=== PATIENT | female | born 1965 | race African-American/Black ===

== ENCOUNTER 2016-12-24 11:17 | Emergency (ER) | payer BC ==
[~2016-12-24 11:17] MED LIST: ASPI81TA2 PO; CLIN300C86 PO; HYDR-971 PO; HYDR1POW19; LISI1TAB3 PO; LISI2.5T; MULT-208 PO
[2016-12-24 12:39] VITALS: BP 155/95
[2016-12-24] MEDS ORDERED: IBUPROFEN 600 MG TABLET. PO ONE (13:00)
--- NOTE | 2016-12-24 14:25 | RAD ---
Right shoulder, 3 views, 12/24/2016: History: Injury, pain No fracture or dislocation is identified. There is mild spurring at the acromioclavicular joint. The periarticular soft tissues are unremarkable. IMPRESSION: 1. Mild degenerative change at the AC joint. 2. No acute abnormality is detected.
--- NOTE | 2016-12-24 14:46 | RAD ---
Right elbow, 3 views, 12/24/2016: History: Elbow pain and tenderness No fracture or dislocation is identified. No joint effusion is evident. IMPRESSION: No acute right elbow abnormality is detected.
--- NOTE | 2016-12-24 14:54 | PHYS DOC ---
Past Medical History Past Medical History: Asthma, Hypertension Additional Past Medical Histor: eye disease Past Surgical History: Appendectomy Additional Past Surgical Histo: left knee surgery Alcohol Use: None Drug Use: None Adult General Chief Complaint Chief Complaint: UPPER EXTREMITY PAIN HPI HPI Patient is a 51 year old female presents emergency department stating that she has having right shoulder right elbow pain and discomfort. She states that they can fell off the shelf and hit her of the shoulder. She also states that she has been having pain in the elbow area in which has caused her to have some swelling and discomfort down into her hand. She denies any injury or trauma to the elbow area. Patient has full range of motion of the elbow peripheral pulses 2+ cap refill brisk less than 2 seconds. 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 Patient is right-hand dominant. Review of Systems Review of Systems Constitutional: Denies fever or chills [] Eyes: Denies change in visual acuity, redness, or eye pain [] HENT: Denies nasal congestion or sore throat [] Respiratory: Denies cough or shortness of breath [] Cardiovascular: No additional information not addressed in HPI [] GI: Denies abdominal pain, nausea, vomiting, bloody stools or diarrhea [] : Denies dysuria or hematuria [] Musculoskeletal: Denies back pain. Right shoulder and elbow pain Integument: Denies rash or skin lesions [] Neurologic: Denies headache, focal weakness or sensory changes [] Endocrine: Denies polyuria or polydipsia [] Current Medications Current Medications Current Medications Medications (Trade) Dose Ordered Sig/Erika Start Time Stop Time Status Last Admin Dose Admin Ibuprofen (Motrin) 600 mg 1X ONCE 12/24/16 13:00 12/24/16 13:01 DC 12/24/16 13:00 600 MG Allergies Allergies Allergies Coded Allergies Type Severity Reaction Last Updated Verified No Known Medication Allergies Allergy Unknown 03/16/16 Yes Uncoded Allergies Type Severity Reaction Last Updated Verified BOLOGNA Allergy Unknown BROKE OUT WITH HIVES, COUGHING 03/13/16 Physical Exam Physical Exam Constitutional: Well developed, well nourished, no acute distress, non-toxic appearance. [] HENT: Normocephalic, atraumatic, bilateral external ears normal, oropharynx moist, no oral exudates, nose normal. [] Eyes: PERRLA, EOMI, conjunctiva normal, no discharge. [] Neck: Normal range of motion, no tenderness, supple, no stridor. [] Cardiovascular:Heart rate regular rhythm, no murmur [] Lungs & Thorax: Bilateral breath sounds clear to auscultation [] Skin: Warm, dry, no erythema, no rash. [] Back: No tenderness Extremities: Right shoulder and elbow tenderness, no cyanosis, no clubbing, ROM intact, no edema. Patient with full range of motion of the elbow and the shoulder area. No bruising or discoloration noted. Patient does have slight swelling noted at the elbow area and low. Peripheral pulses are 2+ cap refill brisk less than 2 seconds. Patient with good sensation. 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 Neurologic: Alert and oriented X 3, normal motor function, normal sensory function, no focal deficits noted. [] Psychologic: Affect normal, judgement normal, mood normal. [] Current Patient Data Vital Signs Vital Signs Date Time Temp Pulse Resp B/P (MAP) Pulse Ox O2 Delivery O2 Flow Rate FiO2 12/24/16 12:39 98.1 60 18 97 Room Air 98.1 EKG EKG [] Radiology/Procedures Radiology/Procedures [][address] [id number] IMAGING REPORT Signed PATIENT: DANNIELLE SMITH ACCOUNT: [id number] : 1965 LOCATION: ER AGE: 51 SEX: F EXAM STATUS: REG ER ORD. PHYSICIAN: KAREEN COLEY APRN REASON: pain and discomfort in shoulder no injury PROCEDURE: SHOULDER 2+V RIGHT Right shoulder, 3 views, 12/24/2016: History: Injury, pain No fracture or dislocation is identified. There is mild spurring at the acromioclavicular joint. The periarticular soft tissues are unremarkable. IMPRESSION: 1. Mild degenerative change at the AC joint. 2. No acute abnormality is detected. DICTATED and SIGNED BY: DEREK LEUNG MD DATE: 12/24/16 1422 CC: KAREEN COLEY APRN; SKYLAR BRAY MD; NON,STAFF ~ [facility] [address] [place] [address] IMAGING REPORT Signed PATIENT: DANNIELLE SMITH ACCOUNT: [id number] : 1965 LOCATION: ER AGE: 51 SEX: F EXAM STATUS: REG ER ORD. PHYSICIAN: KAREEN COLEY APRN REASON: pain and tenderness with movement. no injury PROCEDURE: ELBOW RIGHT 3V Right elbow, 3 views, 12/24/2016: History: Elbow pain and tenderness No fracture or dislocation is identified. No joint effusion is evident. IMPRESSION: No acute right elbow abnormality is detected. DICTATED and SIGNED BY: DEREK LEUNG MD DATE: 12/24/16 1443 CC: KAREEN COLEY APRN; SKYLAR BRAY MD; NON,STAFF ~ Course & Med Decision Making Course & Med Decision Making Pertinent Labs and Imaging studies reviewed. (See chart for details) X-rays were negative. We'll encourage patient to do active range of motion. Recommended ibuprofen 600 mg every 8 hours with food stop taking few develop any upset stomachs. She'll be provided with orthopedic name and number to follow up with as she continues to have pain and discomfort. Patient will be discharged home in stable condition since symptoms to return back to emergency department as been provided. [] Dragon Disclaimer Dragon Disclaimer This electronic medical record was generated, in whole or in part, using a voice recognition dictation system. Departure Departure Impression: Primary Impression: Right shoulder pain Additional Impression: Bursitis of right elbow Disposition: HOME, SELF-CARE Condition: STABLE Referrals: SKYLAR BRAY MD (PCP) LEONEL GRAMAJO II, MD Patient Instructions: Bursitis, [id number], Shoulder Pain, [id number] Additional Instructions: Activity as tolerated. Ibuprofen 600 mg every 8 hours. Ice packs on 20 minutes off 20 minutes several times a day. No heavy lifting or repetitive motion for the next 5 days. Follow-up with orthopedic in the next 7-10 days if he continued have pain and discomfort. Return back to emergency prior signs symptoms of become worse. Problem Qualifiers KAREEN COLEY APRN December 24, 2016 14:54
== END 2016-12-24 15:00 | disposition home or self-care (01) ==
LOC: ER 11:17
DX: M70.21 Olecranon bursitis, right elbow (principal); M25.511 Pain in right shoulder; J45.909 Unspecified asthma, uncomplicated; I10 Essential (primary) hypertension; Z90.49 Acquired absence of other specified parts of digestive tract; Z98.890 Other specified postprocedural states; Z91.018 Allergy to other foods
CPT/HCPCS: 73030; 73080; 99284

== ENCOUNTER 2018-09-11 07:47 | Emergency (ER) | payer SELFPAY ==
[~2018-09-11] VITALS: Ht 167.6 cm; Wt 81.6 kg
[~2018-09-11 07:47] MED LIST changes: +ALBU2.5V8 INH; +ASPI-630 PO; -ASPI81TA2 PO; +AZIT250T PO; +BENZ100C PO; +CLIN300C8 PO; -CLIN300C86 PO; +HYDR-3164 PO; -HYDR-971 PO; +PRED50TA PO
[2018-09-11 08:11] LABS: BASO % 0 % (0-3); EOS # 0.1 x10^3/uL (0.0-0.7); EOS % 2 % (0-3); HEMATOCRIT 41.7 % (36.0-47.0); HEMOGLOBIN 13.3 g/dL (12.0-15.5); LYMPH # 1.5 x10^3/uL (1.0-4.8); LYMPH % 20 % (24-48); MEAN CORPUSCULAR HEMOGLOBIN 28 pg (25-35); MEAN CORPUSCULAR HGB CONC 32 g/dL (31-37); MEAN CORPUSCULAR VOLUME 89 fL (79-100); MONO # 0.4 x10^3/uL (0.0-1.1); MONO % 6 % (0-9); NEUT # 5.7 x10^3uL (1.8-7.7); NEUT % 73 % (31-73); PLATELET COUNT 226 x10^3/uL (140-400); RED BLOOD COUNT 4.72 x10^6/uL (3.50-5.40); RED CELL DISTRIBUTION WIDTH 14.3 % (11.5-14.5); WHITE BLOOD COUNT 7.9 x10^3/uL (4.0-11.0)
[2018-09-11] MEDS ORDERED: ONDANSETRON PF 4 MG/2 ML VIAL. IV ONE (08:15)
[2018-09-11] MEDS ORDERED: METOCLOPRAMIDE HCL 10 MG/2 ML VIAL. IV ONE (08:15)
[2018-09-11] MEDS ORDERED: diphenhydrAMINE 50 MG/ML VIAL IVP ONE (08:15)
[2018-09-11] MEDS ORDERED: PROCHLORPERAZINE 10 MG/2 ML VIAL. IV ONE (08:15)
[2018-09-11 08:21] LABS: CALCIUM 8.9 mg/dL (8.5-10.1); CREATININE 1.1 mg/dL (0.6-1.0); GFR 62.6; POTASSIUM 3.4 mmol/L (3.5-5.1)
--- NOTE | 2018-09-11 08:50 | RAD ---
CT HEAD INDICATION: Headache, hypertension COMPARISON: 12/16/2013 Exposure: One or more of the following individualized dose reduction techniques were utilized for this examination: 1. Automated exposure control 2. Adjustment of the mA and/or kV according to patient size 3. Use of iterative reconstruction technique TECHNIQUE: 5 mm contiguous axial images were obtained from the skull base to the vertex in both bone and soft tissue algorithm. FINDINGS: No abnormal attenuation within the brain parenchyma. No evidence of acute intracranial hemorrhage. No extra-axial fluid collections. No mass effect or midline shift. Ventricular size is appropriate. Basal cisterns are patent. No fractures identified.Cowart-white differentiation is preserved.Globes and orbits are within normal limits. Paranasal sinuses and mastoid air cells are clear. IMPRESSION: No acute intracranial findings. Electronically signed by: Shaquille Peters MD (09/11/2018 8:45 AM) [place] [id number]
[2018-09-11] MEDS ORDERED: cloNIDine HCL 0.1 MG TABLET PO ONE (09:00)
[2018-09-11] MEDS ORDERED: IV NORMAL SALINE 1000ML BAG 1,000 ML IV ONE (09:00)
[2018-09-11] MEDS ORDERED: HYDR-3135 PO (09:11)
[2018-09-11] MEDS ORDERED: CLON0.1T PO (09:11)
--- NOTE | 2018-09-11 09:12 | PHYS DOC ---
Past Medical History Past Medical History: Asthma, Hypertension Additional Past Medical Histor: eye disease Past Surgical History: Appendectomy Additional Past Surgical Histo: left knee surgery Alcohol Use: None Drug Use: None Adult General Chief Complaint Chief Complaint: HEADACHE HPI HPI Patient is a 52 year old female history of hypertension who presents with persistent persistent frontal, facial headache starting earlier today. This is not the worst headache patient's and started gradually this morning progressed after the patient arrived at work. ARENAS is not associated with nausea, vomiting, light sensitivity. Denies neck pain, stiffness, fever or rash. No chest pain palpitations shortness of breath. Reports only mild URI symptoms, congestion, sinus drainage. No recent other illnesses. No, patient's hypertensive, 220s over 100s, patient states she is compliant with blood pressure medication and took medication prior to ED arrival. She states her blood pressure is normally elevated. [] Review of Systems Review of Systems ROS as per HPI All other systems were reviewed and found to be within normal limits, except as documented in this note. Current Medications Current Medications Current Medications Medications (Trade) Dose Ordered Sig/Erika Start Time Stop Time Status Last Admin Dose Admin Clonidine HCl (Catapres) 0.2 mg 1X ONCE 09/11/18 09:00 09/11/18 09:01 Diphenhydramine HCl (Benadryl) 25 mg 1X ONCE 09/11/18 08:15 09/11/18 08:16 DC 09/11/18 08:33 25 MG Metoclopramide HCl (Reglan Vial) 10 mg 1X ONCE 09/11/18 08:15 09/11/18 08:16 DC 09/11/18 08:33 10 MG Ondansetron HCl (Zofran) 4 mg 1X ONCE 09/11/18 08:15 09/11/18 08:16 DC 09/11/18 08:31 4 MG Prochlorperazine Edisylate (Compazine) 10 mg 1X ONCE 09/11/18 08:15 09/11/18 08:16 DC 09/11/18 08:31 10 MG Sodium Chloride 1,000 ml @ 1,000 mls/hr 1X ONCE 09/11/18 09:00 09/11/18 09:59 Allergies Allergies Allergies Coded Allergies Type Severity Reaction Last Updated Verified No Known Medication Allergies Allergy Unknown 03/16/16 Yes Uncoded Allergies Type Severity Reaction Last Updated Verified BOLOGNA Allergy Unknown BROKE OUT WITH HIVES, COUGHING 03/13/16 Physical Exam Physical Exam Constitutional: Well developed, well nourished, no acute distress, non-toxic appearance. [] HENT: Normocephalic, atraumatic, bilateral external ears normal, oropharynx moist, no oral exudates, nose normal. [] Eyes: PERRLA, EOMI, conjunctiva normal, no discharge. [] Neck: Normal range of motion, no tenderness, supple, no stridor. [] Cardiovascular:Heart rate regular rhythm, no murmur [] Lungs & Thorax: Bilateral breath sounds clear to auscultation. [] Abdomen: Bowel sounds normal, soft, no tenderness. [] Skin: Warm, dry, no erythema, no rash. [] Back: No tenderness. [] Extremities: No tenderness, no edema. [] Neurologic: Alert and oriented X 3, normal motor function, normal sensory function, no focal deficits noted. [] Psychologic: Affect normal, judgement normal, mood normal. [] Current Patient Data Vital Signs Vital Signs Date Time Temp Pulse Resp B/P (MAP) Pulse Ox O2 Delivery O2 Flow Rate FiO2 09/11/18 08:04 97.6 62 20 224/107 (146) 98 Room Air 97.6 Lab Values Laboratory Tests Test 09/11/18 07:58 White Blood Count 7.9 x10^3/uL (4.0-11.0) Red Blood Count 4.72 x10^6/uL (3.50-5.40) Hemoglobin 13.3 g/dL (12.0-15.5) Hematocrit 41.7 % (36.0-47.0) Mean Corpuscular Volume 89 fL (79-100) Mean Corpuscular Hemoglobin 28 pg (25-35) Mean Corpuscular Hemoglobin Concent 32 g/dL (31-37) Red Cell Distribution Width 14.3 % (11.5-14.5) Platelet Count 226 x10^3/uL (140-400) Neutrophils (%) (Auto) 73 % (31-73) Lymphocytes (%) (Auto) 20 % (24-48) L Monocytes (%) (Auto) 6 % (0-9) Eosinophils (%) (Auto) 2 % (0-3) Basophils (%) (Auto) 0 % (0-3) Neutrophils # (Auto) 5.7 x10^3uL (1.8-7.7) Lymphocytes # (Auto) 1.5 x10^3/uL (1.0-4.8) Monocytes # (Auto) 0.4 x10^3/uL (0.0-1.1) Eosinophils # (Auto) 0.1 x10^3/uL (0.0-0.7) Basophils # (Auto) 0.0 x10^3/uL (0.0-0.2) Sodium Level 141 mmol/L (136-145) Potassium Level 3.4 mmol/L (3.5-5.1) L Chloride Level 105 mmol/L (98-107) Carbon Dioxide Level 28 mmol/L (21-32) Anion Gap 8 (6-14) Blood Urea Nitrogen 18 mg/dL (7-20) Creatinine 1.1 mg/dL (0.6-1.0) H Estimated GFR (Cockcroft-Gault) 62.6 Glucose Level 116 mg/dL (70-99) H Calcium Level 8.9 mg/dL (8.5-10.1) Laboratory Tests 09/11/18 07:58 Laboratory Tests 09/11/18 07:58 EKG EKG [] Radiology/Procedures Radiology/Procedures [CT head: No acute intracranial findings per radiology report] Course & Med Decision Making Course & Med Decision Making Pertinent Labs and Imaging studies reviewed. (See chart for details) [Headache improved with treatment. No focal neurologic deficits. Lab work and CT reassuring. Blood pressure improved with treatment. Recommend continued supportive care with PCP follow-up. Return precautions reviewed. Patient verbalizes understanding agreement with discharge instructions prior to departure.] Dragon Disclaimer Dragon Disclaimer This electronic medical record was generated, in whole or in part, using a voice recognition dictation system. Departure Departure Impression: Primary Impression: Headache Additional Impression: Accelerated essential hypertension Disposition: 01 HOME, SELF-CARE Condition: GOOD Referrals: UNKNOWN PCP NAME (PCP) Patient Instructions: General Headache Without Cause, Hypertension Additional Instructions: You were evaluated in the emergency department for headache and blood pressure. Lab work and imaging studies were performed and are nondiagnostic. The exact cause of your symptoms has not been determined., Please follow-up with your PCP as soon as possible for reevaluation and management of blood pressure. In the meantime, take hydrocodone as needed if headache returns and clonidine as needed for blood pressure greater than 160/90. Return to the ED if you develop new or concerning symptoms. Scripts Clonidine Hcl (CLONIDINE HCL) 0.1 Mg Tablet 1 TAB PO Q6HRS PRN for HYPERTENSION, SEE COMMENTS, #30 TAB 1 Refill Take 1 pill every 6 hrs for BP greater than 160/90 Prov: DOMINGA CONTRERAS DO 09/11/18 Hydrocodone/Apap 10-325 (NORCO 10-325 TABLET) 1 Each Tablet 1 TAB PO Q8HRS PRN for PAIN MDD 6, #10 TAB 0 Refills Prov: DOMINGA CONTRERAS DO 09/11/18 Problem Qualifiers DOMINGA CONTRERAS DO Sep 11, 2018 09:12
[2018-09-11 09:20] VITALS: BP 192/94
== END 2018-09-11 09:15 | disposition home or self-care (01) ==
LOC: ER 07:47
DX: R51 Headache (principal); I10 Essential (primary) hypertension; R09.81 Nasal congestion; J45.909 Unspecified asthma, uncomplicated; Z90.89 Acquired absence of other organs; Z91.018 Allergy to other foods
CPT/HCPCS: 36415; 70450; 80048; 85025; 96374; 96375; 99284; J0780; J1200; J2405; J2765; J7030; 96361

== ENCOUNTER 2018-10-22 01:40 | Emergency (ER) | payer SELFPAY ==
[~2018-10-22] VITALS: Ht 162.6 cm; Wt 85.7 kg
[~2018-10-22 01:40] MED LIST changes: +CLON0.1T PO; +HYDR-3135 PO
[2018-10-22 02:04] LABS: BILIRUBIN,URINE NEGATIVE (NEG); CLARITY,URINE CLEAR; COLOR,URINE YELLOW; NITRITE,URINE NEGATIVE (NEG); PROTEIN,URINE >=300 mg/dL (NEG-TRACE)
[2018-10-22 02:10] LABS: BACTERIA,URINE FEW /HPF (0-FEW); RBC,URINE 0 /HPF (0-2); SQUAMOUS EPITHELIAL CELL,UR MOD /LPF; WBC,URINE OCC /HPF (0-4)
[2018-10-22 02:18] LABS: BASO # 0.1 x10^3/uL (0.0-0.2); BASO % 1 % (0-3); EOS # 0.1 x10^3/uL (0.0-0.7); EOS % 1 % (0-3); HEMOGLOBIN 12.2 g/dL (12.0-15.5); LYMPH % 21 % (24-48); MEAN CORPUSCULAR HEMOGLOBIN 29 pg (25-35); MEAN CORPUSCULAR HGB CONC 32 g/dL (31-37); MEAN CORPUSCULAR VOLUME 88 fL (79-100); MONO # 0.9 x10^3/uL (0.0-1.1); MONO % 10 % (0-9); NEUT # 6.2 x10^3uL (1.8-7.7); NEUT % 67 % (31-73); PLATELET COUNT 226 x10^3/uL (140-400); RED CELL DISTRIBUTION WIDTH 14.6 % (11.5-14.5); WHITE BLOOD COUNT 9.3 x10^3/uL (4.0-11.0)
--- NOTE | 2018-10-22 02:21 | PHYS DOC ---
Past Medical History Past Medical History: Asthma, Hypertension Additional Past Medical Histor: eye disease Past Surgical History: Appendectomy Additional Past Surgical Histo: left knee surgery Alcohol Use: None Drug Use: None Adult General Chief Complaint Chief Complaint: ABDOMINAL PAIN HPI HPI 52-year-old female presents with chief complaint of right flank pain and abdominal pain. Patient states and states in her right flank and radiates around to her left lower quadrant. Patient denies any associated nausea vomiting or diarrhea. She denies any urinary symptoms. Review of Systems Review of Systems Constitutional: Denies fever or chills [] Eyes: Denies change in visual acuity, redness, or eye pain [] HENT: Denies nasal congestion or sore throat [] Respiratory: Denies cough or shortness of breath [] Cardiovascular: No additional information not addressed in HPI [] GI: positive abdominal pain, No nausea, vomiting, bloody stools or diarrhea [] : Denies dysuria or hematuria [positive flank pain] Musculoskeletal: Denies back pain or joint pain [] Integument: Denies rash or skin lesions [] Neurologic: Denies headache, focal weakness or sensory changes [] Endocrine: Denies polyuria or polydipsia [] All other systems were reviewed and found to be within normal limits, except as documented in this note. Current Medications Current Medications Current Medications Medications (Trade) Dose Ordered Sig/Erika Start Time Stop Time Status Last Admin Dose Admin Info (CONTRAST GIVEN -- Rx MONITORING) 1 each PRN DAILY PRN 10/22/18 02:45 10/24/18 02:44 Iohexol (Omnipaque 300 Mg/ml) 75 ml 1X ONCE 10/22/18 02:45 10/22/18 02:46 DC Ketorolac Tromethamine (Toradol 30mg Vial) 30 mg 1X ONCE 10/22/18 02:30 10/22/18 02:31 DC 10/22/18 03:04 30 MG Allergies Allergies Allergies Coded Allergies Type Severity Reaction Last Updated Verified No Known Medication Allergies Allergy Unknown 03/16/16 Yes Uncoded Allergies Type Severity Reaction Last Updated Verified BOLOGNA Allergy Unknown BROKE OUT WITH HIVES, COUGHING 03/13/16 Physical Exam Physical Exam Constitutional: Well developed, well nourished, no acute distress, non-toxic appearance. [] HENT: Normocephalic, atraumatic, bilateral external ears normal, oropharynx moist, no oral exudates, nose normal. [] Eyes: PERRLA, EOMI, conjunctiva normal, no discharge. [] Neck: Normal range of motion, no tenderness, supple, no stridor. [] Cardiovascular:Heart rate regular rhythm, no murmur [] Lungs & Thorax: Bilateral breath sounds clear to auscultation [] Abdomen: Bowel sounds normal, soft, no tenderness, no masses, no pulsatile masses. [] Skin: Warm, dry, no erythema, no rash. [] Back: No tenderness, no CVA tenderness. [] Extremities: No tenderness, no cyanosis, no clubbing, ROM intact, no edema. [] Neurologic: Alert and oriented X 3, normal motor function, normal sensory function, no focal deficits noted. [] Psychologic: Affect normal, judgement normal, mood normal. [] Current Patient Data Vital Signs Vital Signs Date Time Temp Pulse Resp B/P (MAP) Pulse Ox O2 Delivery O2 Flow Rate FiO2 10/22/18 01:48 99.1 69 20 208/98 (134) 99 Room Air 99.1 Lab Values Laboratory Tests Test 10/22/18 01:42 10/22/18 02:12 Urine Collection Type Unknown Urine Color Yellow Urine Clarity Clear Urine pH 6.0 Urine Specific [place] >=1.030 Urine Protein >=300 mg/dL (NEG-TRACE) Urine Glucose (UA) Negative mg/dL (NEG) Urine Ketones (Stick) Negative mg/dL (NEG) Urine Blood Negative (NEG) Urine Nitrite Negative (NEG) Urine Bilirubin Negative (NEG) Urine Urobilinogen Dipstick 1.0 mg/dL (0.2 mg/dL) Urine Leukocyte Esterase Negative (NEG) Urine RBC 0 /HPF (0-2) Urine WBC Occ /HPF (0-4) Urine Squamous Epithelial Cells Mod /LPF Urine Bacteria Few /HPF (0-FEW) Urine Mucus Slight /LPF White Blood Count 9.3 x10^3/uL (4.0-11.0) Red Blood Count 4.30 x10^6/uL (3.50-5.40) Hemoglobin 12.2 g/dL (12.0-15.5) Hematocrit 38.0 % (36.0-47.0) Mean Corpuscular Volume 88 fL (79-100) Mean Corpuscular Hemoglobin 29 pg (25-35) Mean Corpuscular Hemoglobin Concent 32 g/dL (31-37) Red Cell Distribution Width 14.6 % (11.5-14.5) H Platelet Count 226 x10^3/uL (140-400) Neutrophils (%) (Auto) 67 % (31-73) Lymphocytes (%) (Auto) 21 % (24-48) L Monocytes (%) (Auto) 10 % (0-9) H Eosinophils (%) (Auto) 1 % (0-3) Basophils (%) (Auto) 1 % (0-3) Neutrophils # (Auto) 6.2 x10^3uL (1.8-7.7) Lymphocytes # (Auto) 2.0 x10^3/uL (1.0-4.8) Monocytes # (Auto) 0.9 x10^3/uL (0.0-1.1) Eosinophils # (Auto) 0.1 x10^3/uL (0.0-0.7) Basophils # (Auto) 0.1 x10^3/uL (0.0-0.2) Sodium Level 146 mmol/L (136-145) H Potassium Level 3.1 mmol/L (3.5-5.1) L Chloride Level 108 mmol/L (98-107) H Carbon Dioxide Level 28 mmol/L (21-32) Anion Gap 10 (6-14) Blood Urea Nitrogen 22 mg/dL (7-20) H Creatinine 1.3 mg/dL (0.6-1.0) H Estimated GFR (Cockcroft-Gault) 51.6 BUN/Creatinine Ratio 17 (6-20) Glucose Level 112 mg/dL (70-99) H Calcium Level 8.6 mg/dL (8.5-10.1) Total Bilirubin 0.3 mg/dL (0.2-1.0) Aspartate Amino Transferase (AST) 16 U/L (15-37) Alanine Aminotransferase (ALT) 15 U/L (14-59) Alkaline Phosphatase 101 U/L (46-116) Total Protein 7.5 g/dL (6.4-8.2) Albumin 2.9 g/dL (3.4-5.0) L Albumin/Globulin Ratio 0.6 (1.0-1.7) L Lipase 390 U/L (73-393) Laboratory Tests 10/22/18 02:12 Laboratory Tests 10/22/18 02:12 EKG EKG [] Radiology/Procedures Radiology/Procedures [] Course & Med Decision Making Course & Med Decision Making Pertinent Labs and Imaging studies reviewed. (See chart for details) [] Dragon Disclaimer Dragon Disclaimer This electronic medical record was generated, in whole or in part, using a voice recognition dictation system. Departure Departure Impression: Primary Impression: Abdominal pain Additional Impressions: Flank pain Constipation Referrals: UNKNOWN PCP NAME (PCP) Problem Qualifiers Primary Impression: Abdominal pain Abdominal location: unspecified location Qualified Codes: R10.9 - Unspecified abdominal pain ALAN DONOHUE DO Oct 22, 2018 02:21
[2018-10-22 02:27] LABS: CALCIUM 8.6 mg/dL (8.5-10.1); CREATININE 1.3 mg/dL (0.6-1.0); GFR 51.6; POTASSIUM 3.1 mmol/L (3.5-5.1)
[2018-10-22] MEDS ORDERED: KETOROLAC 30 MG/ML VIAL. IV ONE (02:30)
[2018-10-22 02:31] LABS: ALBUMIN 2.9 g/dL (3.4-5.0); ALBUMIN/GLOBULIN RATIO 0.6 (1.0-1.7); TOTAL BILIRUBIN 0.3 mg/dL (0.2-1.0); TOTAL PROTEIN 7.5 g/dL (6.4-8.2)
[2018-10-22] MEDS ORDERED: IOHEXOL 300 MG/ML 100ML VIAL. IV ONE (02:45)
[2018-10-22] MEDS ORDERED: CONTRAST GIVEN. MC PRN (02:45)
--- NOTE | 2018-10-22 03:05 | RAD ---
PQRS Compliance statement: One or more of the following individualized dose reduction techniques were utilized for this examination: 1. Automated exposure control. 2. Adjustment of the mA and/or kV according to patient size. 3. Use of iterative reconstruction technique. Indication:abd pain x 4 days; Omni 300, 60ml TECHNIQUE: CT abdomen and pelvis with IV contrast with multiplanar reformats. COMPARISON: None FINDINGS: Heart is normal in size. No pericardial or pleural effusion. Clear lung bases. Liver, spleen, gallbladder, pancreas, right adrenal within normal limits. 4.4 x 3.4 cm well-circumscribed low attenuating mass is seen in the left adrenal gland with internal fat densities. No nephrolithiasis or hydronephrosis. 2.3 cm low attenuating lesion is seen in the interpolar left kidney most like a simple cyst. No free pelvic fluid or ascites. No enlarged retroperitoneal or pelvic adenopathy. No bowel obstruction. Appendix is not visualized. Anteverted uterus. Urinary bladder is decompressed however shows no radiopaque stone. Moderate diffuse colonic stool burden. No pneumoperitoneum. No suspicious bony lesion. IMPRESSION: 1. Moderate diffuse chronic stool burden, patient may be constipated. 2. 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 Nonemergent MRI of the abdomen recommended for further evaluation. Electronically signed by: Michele Webster DO (10/22/2018 3:02 AM) [id number]
[2018-10-22] MEDS ORDERED: HYDR-3164 PO (04:57)
[2018-10-22] MEDS ORDERED: PEG4000S8 PO (05:14)
[2018-10-22 05:24] VITALS: BP 145/78
[2018-10-22] MEDS ORDERED: ORPH100T PO (22:55)
== END 2018-10-22 05:25 | disposition home or self-care (01) ==
LOC: ER 01:40
DX: K59.00 Constipation, unspecified (principal); R10.9 Unspecified abdominal pain; J45.909 Unspecified asthma, uncomplicated; I10 Essential (primary) hypertension; Z90.89 Acquired absence of other organs; Z91.018 Allergy to other foods
CPT/HCPCS: 36415; 74177; 80053; 81001; 83690; 85025; 96374; 99284; J1885

== ENCOUNTER 2018-10-22 22:13 | Emergency (ER) | payer SELFPAY ==
[~2018-10-22] VITALS: Ht 167.6 cm; Wt 85.7 kg
[~2018-10-22 22:13] MED LIST changes: +PEG4000S8 PO
[2018-10-22 22:17] VITALS: BP 217/105
[2018-10-22] MEDS: CYCLOBENZAPRINE 10 MG TABLET. PO ONE (22:46)
[2018-10-22] MEDS: DEXAMETHASONE SOD PHOS 20 MG/5 ML VIAL. IM ONE (22:46)
[2018-10-22] MEDS: HYDROmorphone 2 MG/ML VIAL IM ONE (22:46)
[2018-10-22] MEDS ORDERED: ORPH100T PO (22:55)
--- NOTE | 2018-10-22 22:55 | PHYS DOC ---
Past Medical History Past Medical History: Asthma, Hypertension Additional Past Medical Histor: eye disease Past Surgical History: Appendectomy Additional Past Surgical Histo: left knee surgery Alcohol Use: None Drug Use: None Adult General Chief Complaint Chief Complaint: BACK INJURY HPI HPI Patient is a 52-year-old female who presents with complaint of lower back pain for the last day. Patient was seen here earlier this morning for constipation and lower back pain and had been given magnesium citrate states that she had a large bowel movement. She states that she was also prescribed some hydrocodone and states that she has taken the hydrocodone but has no relief from the back pain. She rates her pain to be a 10 out of 10. She denies any loss of bowel or bladder function and denies any radiation into the lower extremities and has had no saddle anesthesia. Patient states that pain is worsened with movement. She denies any recent injuries. Review of Systems Review of Systems Constitutional: Denies fever or chills [] Respiratory: Denies cough or shortness of breath [] Cardiovascular: No additional information not addressed in HPI [] GI: Complains of constipation[] : Denies dysuria or hematuria [] Musculoskeletal: Complains of lower back pain [] Integument: Denies rash or skin lesions [] Neurologic: Denies headache, focal weakness or sensory changes [] Current Medications Current Medications Current Medications Medications (Trade) Dose Ordered Sig/[facility] Start Time Stop Time Status Last Admin Dose Admin Cyclobenzaprine HCl (Flexeril) 10 mg 1X ONCE 10/22/18 23:00 10/22/18 23:01 DC 10/22/18 22:46 10 MG Dexamethasone Sodium Phosphate (Decadron) 10 mg 1X ONCE 10/22/18 23:00 10/22/18 23:01 DC 10/22/18 22:46 10 MG Hydromorphone HCl (Dilaudid) 1 mg 1X ONCE 10/22/18 23:00 10/22/18 23:01 DC 10/22/18 22:46 1 MG Allergies Allergies Allergies Coded Allergies Type Severity Reaction Last Updated Verified No Known Medication Allergies Allergy Unknown 03/16/16 Yes Uncoded Allergies Type Severity Reaction Last Updated Verified BOLOGNA Allergy Intermediate BROKE OUT WITH HIVES, COUGHING 10/22/18 Physical Exam Physical Exam Constitutional: Well developed, well nourished, no acute distress, non-toxic appearance. [] Cardiovascular: Regular rate and rhythm[] Lungs & Thorax: Bilateral breath sounds clear to auscultation [] Abdomen: Bowel sounds normal, soft, no tenderness. [] Skin: Warm, dry, no erythema, no rash. [] Back: There is tenderness to palpation and palpable spasm in the bilateral paraspinal musculature in the lower thoracic and lumbar region. [] Neurologic: Alert and oriented X 3, no focal deficits noted. [] Current Patient Data Vital Signs Vital Signs Date Time Temp Pulse Resp B/P (MAP) Pulse Ox O2 Delivery O2 Flow Rate FiO2 10/22/18 22:46 98 Room Air 10/22/18 22:17 98.5 72 20 217/105 (142) 98.5 EKG EKG [] Radiology/Procedures Radiology/Procedures [] Course & Med Decision Making Course & Med Decision Making Pertinent Labs and Imaging studies reviewed. (See chart for details) Patient given IM doses of Dilaudid and Decadron. Patient also given by mouth Flexeril. Dragon Disclaimer Dragon Disclaimer This electronic medical record was generated, in whole or in part, using a voice recognition dictation system. Departure Departure Impression: Primary Impression: Acute low back pain Additional Impression: Muscle spasm of back Disposition: 01 HOME, SELF-CARE Condition: STABLE Referrals: UNKNOWN PCP NAME (PCP) Patient Instructions: Back Pain, Adult Scripts Orphenadrine Citrate (ORPHENADRINE CITRATE) 100 Mg Tablet.er 1 TAB PO BID PRN for MUSCLE SPASMS, #20 TAB Prov: MAVIS BOWLING Jr. DO 10/22/18 Problem Qualifiers Primary Impression: Acute low back pain Back pain laterality: bilateral Sciatica presence: without sciatica Qualified Codes: M54.5 - Low back pain MAVIS BOWLING Jr. DO Oct 22, 2018 22:55
== END 2018-10-22 23:03 | disposition home or self-care (01) ==
LOC: ER 22:13
DX: M62.830 Muscle spasm of back (principal); J45.909 Unspecified asthma, uncomplicated; I10 Essential (primary) hypertension; Z90.89 Acquired absence of other organs; Z91.018 Allergy to other foods
CPT/HCPCS: 96372; 99283; J1100; J1170

== ENCOUNTER 2018-10-24 22:20 | Emergency (ER) | payer SELFPAY ==
[~2018-10-24] VITALS: Ht 167.6 cm; Wt 85.7 kg
[~2018-10-24 22:20] MED LIST changes: +ORPH100T PO
[2018-10-24 23:30] LABS: BILIRUBIN,URINE NEGATIVE (NEG); CLARITY,URINE CLEAR; COLOR,URINE YELLOW; NITRITE,URINE NEGATIVE (NEG); PROTEIN,URINE 100 mg/dL (NEG-TRACE)
[2018-10-24 23:40] LABS: BACTERIA,URINE 0 /HPF (0-FEW); RBC,URINE 0 /HPF (0-2); SQUAMOUS EPITHELIAL CELL,UR OCC /LPF
[2018-10-25 00:11] LABS: U PREG PATIENT NEGATIVE (NEG)
[2018-10-25] MEDS ORDERED: KETOROLAC 15 MG/ML VIAL. IM ONE (00:30)
[2018-10-25] MEDS ORDERED: METHOCARBAMOL 500 MG TABLET PO ONE (00:30)
[2018-10-25 00:40] VITALS: BP 177/90
[2018-10-25] MEDS ORDERED: ORPH100T PO (00:42)
[2018-10-25] MEDS ORDERED: MELO7.5T29 PO (00:42)
--- NOTE | 2018-10-25 00:42 | PHYS DOC ---
Past Medical History Past Medical History: Asthma, Hypertension Additional Past Medical Histor: eye disease Past Surgical History: Appendectomy Additional Past Surgical Histo: left knee surgery Alcohol Use: None Drug Use: None Adult General Chief Complaint Chief Complaint: BACK PAIN - NO INJURY HPI HPI Patient is a 52 year old female who presents with back pain for the past 4 days. There is been no trauma. Possibly increased lifting and twisting at work. No numbness, tingling, paresthesias. No loss of bowel or bladder control. No fever. No personal history of cancer. Increased pain with moving. Better with holding still. No home medicines been taken.[] Review of Systems Review of Systems Constitutional: Denies fever or chills [] Eyes: Denies change in visual acuity, redness, or eye pain [] HENT: Denies nasal congestion or sore throat [] Respiratory: Denies cough or shortness of breath [] Cardiovascular: No chest pain or palpitations[] GI: Denies abdominal pain, nausea, vomiting, bloody stools or diarrhea [] : Denies dysuria or hematuria [] Musculoskeletal: See history of present illness[] Integument: Denies rash or skin lesions [] Neurologic: Denies headache, focal weakness or sensory changes [] Endocrine: Denies polyuria or polydipsia [] All other systems were reviewed and found to be within normal limits, except as documented in this note. Current Medications Current Medications Current Medications Medications (Trade) Dose Ordered Sig/[facility] Start Time Stop Time Status Last Admin Dose Admin Ketorolac Tromethamine (Toradol 15mg Vial) 15 mg 1X ONCE 10/25/18 00:30 10/25/18 00:31 DC 10/25/18 00:21 15 MG Methocarbamol (Robaxin) 500 mg 1X ONCE 10/25/18 00:30 10/25/18 00:31 DC 10/25/18 00:21 500 MG Allergies Allergies Allergies Coded Allergies Type Severity Reaction Last Updated Verified No Known Medication Allergies Allergy Unknown 03/16/16 Yes Uncoded Allergies Type Severity Reaction Last Updated Verified BOLOGNA Allergy Intermediate BROKE OUT WITH HIVES, COUGHING 10/22/18 Physical Exam Physical Exam Constitutional: Well developed, well nourished, mild to moderate distress, non- toxic appearance. [] HENT: Normocephalic, atraumatic, bilateral external ears normal, oropharynx moist, no oral exudates, nose normal. [] Eyes: PERRLA, EOMI, conjunctiva normal, no discharge. [] Neck: Normal range of motion, no tenderness, supple, no stridor. [] Cardiovascular:Heart rate regular rhythm, no murmur [] Lungs & Thorax: Bilateral breath sounds clear to auscultation [] Abdomen: Not examined[] Skin: Warm, dry, no erythema, no rash. [] Back: Tenderness and bilateral lumbar paraspinal muscle spasm. Decreased active range of motion secondary to pain. Normal gait. DTRs are 2 / 4 and symmetric., no CVA tenderness. [] Extremities: No tenderness, no cyanosis, no clubbing, ROM intact, no edema. [] Neurologic: Alert and oriented X 3, normal motor function, normal sensory function, no focal deficits noted. [] Psychologic: Affect normal, judgement normal, mood normal. [] Current Patient Data Vital Signs Vital Signs Date Time Temp Pulse Resp B/P (MAP) Pulse Ox O2 Delivery O2 Flow Rate FiO2 10/24/18 23:31 97.9 62 20 209/100 (136) 98 Room Air 97.9 Lab Values Laboratory Tests Test 10/24/18 22:45 Urine Color Yellow Urine Clarity Clear Urine pH 6.0 Urine Specific [place] 1.020 Urine Protein 100 mg/dL (NEG-TRACE) Urine Glucose (UA) Negative mg/dL (NEG) Urine Ketones (Stick) Negative mg/dL (NEG) Urine Blood Negative (NEG) Urine Nitrite Negative (NEG) Urine Bilirubin Negative (NEG) Urine Urobilinogen Dipstick 1.0 mg/dL (0.2 mg/dL) Urine Leukocyte Esterase Negative (NEG) Urine RBC 0 /HPF (0-2) Urine WBC 1-4 /HPF (0-4) Urine Squamous Epithelial Cells Occ /LPF Urine Bacteria 0 /HPF (0-FEW) Urine Mucus Slight /LPF Urine Test Negative (NEG) EKG EKG [] Radiology/Procedures Radiology/Procedures [] Course & Med Decision Making Course & Med Decision Making Pertinent Labs and Imaging studies reviewed. (See chart for details) ED course and medical decision making: Patient arrived, was placed in bed, and tolerated exam well. She received pain and muscle relaxing medicines. She does not appear to have urinary tract infection nor pyelonephritis. There is no evidence of an ectopic given that she is not . No evidence of neurologic compromise/cauda equina syndrome. Do not think this is a epidural abscess.[] Dragon Disclaimer Dragon Disclaimer This electronic medical record was generated, in whole or in part, using a voice recognition dictation system. Departure Departure Impression: Primary Impression: Back pain Disposition: HOME, SELF-CARE Condition: IMPROVED Referrals: UNKNOWN PCP NAME (PCP) Patient Instructions: Back Exercises, Back Pain, Adult Additional Instructions: Follow-up with your regular doctor in 2 days. Apply warm compresses to the area that hurts for 15 minutes at a time, at least 4 times a day. Return to the ER if you develop a fever of more than 101, loss of bowel or bladder control, or any other concerns. Scripts Orphenadrine Citrate (ORPHENADRINE CITRATE) 100 Mg Tablet.er 100 MG PO BID, #20 TAB.SR Prov: KIANA AVERY DO 10/25/18 Meloxicam (MELOXICAM) 7.5 Mg Tablet 7.5 MG PO DAILY, #20 TAB Prov: KIANA AVERY DO 10/25/18 Problem Qualifiers Primary Impression: Back pain Back pain location: low back pain Chronicity: acute Back pain laterality: bilateral Sciatica presence: without sciatica Qualified Codes: M54.5 - Low back pain KIANA AVERY DO Oct 25, 2018 00:42
== END 2018-10-25 00:49 | disposition home or self-care (01) ==
LOC: ER 22:20
DX: M54.5 Low back pain (principal); J45.909 Unspecified asthma, uncomplicated; I10 Essential (primary) hypertension; Z90.89 Acquired absence of other organs; Z91.018 Allergy to other foods
CPT/HCPCS: 81001; 81025; 96372; 99283; J1885

== ENCOUNTER → 2019-01-15 | Outpatient (CLI) | payer OTHER ==
[~2019-01-15] MED LIST changes: +MELO7.5T29 PO
--- NOTE | 2019-01-15 10:03 | RAD ---
2 views lumbar spine without comparison for degenerative disc disease, osteoarthritis, low back pain for 2 months, no known injury. FINDINGS: There is no fracture or acute osseous or alignment abnormality of the lumbar spine. Patient demonstrates transitional type lumbosacral anatomy, with full size vestigial S1 disc. There is moderate facet arthrosis of the lower lumbar levels. Intervertebral disc spaces are well-maintained. Atherosclerosis is present. IMPRESSION: 1. No fracture or acute osseous or alignment abnormality. 2. Moderate lower lumbar facet arthrosis. 3. Transitional type lumbosacral anatomy. Electronically signed by: Oseas Painter MD (01/15/2019 10:00 AM) [facility] [place]
== END | disposition home or self-care (01) ==
LOC: RAD 08:04
DX: M47.816 Spondylosis without myelopathy or radiculopathy, lumbar region (principal)
CPT/HCPCS: 72100

== ENCOUNTER → 2019-01-15 | Outpatient (CLI) | payer OTHER ==
[~2019-01-15] MED LIST changes: +ALBUTEROL SULFATE 2.5 MG/3 ML NEBU. NEB ONE
== END | disposition home or self-care (01) ==
LOC: PF 07:58
PROVIDERS: ATTEND General Practice
DX: I10 Essential (primary) hypertension (principal); F17.210 Nicotine dependence, cigarettes, uncomplicated
CPT/HCPCS: 94060; 94640; J7613

== ENCOUNTER 2019-02-19 17:52 | Emergency (ER) | payer OTHER ==
[~2019-02-19] VITALS: Ht 167.6 cm; Wt 81.6 kg
[~2019-02-19 17:52] MED LIST changes: -ALBUTEROL SULFATE 2.5 MG/3 ML NEBU. NEB ONE
[2019-02-19 18:15] VITALS: BP 245/119
--- NOTE | 2019-02-19 18:22 | PHYS DOC ---
Past Medical History Past Medical History: Asthma, Hypertension Additional Past Medical Histor: eye disease Past Surgical History: Appendectomy Additional Past Surgical Histo: left knee surgery Alcohol Use: None Drug Use: None Adult General Chief Complaint Chief Complaint: MECHANICAL FALL HPI HPI Patient is a 53 year old female who presents with was at work today when she slipped and fell on some water on the floor and fell landing on her telephone. Patient complains of telephone pain and pain. Patient states she went to the work comp doctor of which took x-rays of her knee, hands and lumbar sacral and stated that she had contusions but wanted her to come to the emergency room because she saw something else in her back. Patient states she does not remember what the doctor said was wrong with her back. Patient is ambulatory. Review of Systems Review of Systems Constitutional: Denies fever or chills [] Eyes: Denies change in visual acuity, redness, or eye pain [] HENT: Denies nasal congestion or sore throat [] Respiratory: Denies cough or shortness of breath [] Cardiovascular: No additional information not addressed in HPI [] GI: Denies abdominal pain, nausea, vomiting, bloody stools or diarrhea [] : Denies dysuria or hematuria [] Musculoskeletal: back pain or joint pain [] Integument: Denies rash or skin lesions [] Neurologic: Denies headache, focal weakness or sensory changes [] All other systems were reviewed and found to be within normal limits, except as documented in this note. Allergies Allergies Allergies Coded Allergies Type Severity Reaction Last Updated Verified No Known Medication Allergies Allergy Unknown 03/16/16 Yes Uncoded Allergies Type Severity Reaction Last Updated Verified BOLOGNA Allergy Intermediate BROKE OUT WITH HIVES, COUGHING 10/22/18 Physical Exam Physical Exam Constitutional: Well developed, well nourished, no acute distress, non-toxic appearance. [] HENT: Normocephalic, atraumatic, bilateral external ears normal, oropharynx moist, no oral exudates, nose normal. [] Eyes: PERRLA, EOMI, conjunctiva normal, no discharge. [] Neck: Normal range of motion, no tenderness, supple, no stridor. [] Cardiovascular:Heart rate regular rhythm, no murmur [] Lungs & Thorax: Bilateral breath sounds clear to auscultation [] Abdomen: Bowel sounds normal, soft, no tenderness, no masses, no pulsatile masses. [] Skin: Warm, dry, no erythema, no rash. [] Back: Thoracic spine down through sacrum tenderness, no CVA tenderness. [] Extremities: No tenderness, no cyanosis, no clubbing, ROM intact, no edema. [] Neurologic: Alert and oriented X 3, normal motor function, normal sensory function, no focal deficits noted. [] Psychologic: Affect normal, judgement normal, mood normal. [] Current Patient Data Vital Signs Vital Signs Date Time Temp Pulse Resp B/P (MAP) Pulse Ox O2 Delivery O2 Flow Rate FiO2 02/19/19 18:15 97.6 63 18 245/119 (161) 98 Room Air 97.6 EKG EKG [] Radiology/Procedures Radiology/Procedures [] Impressions: [facility] [address] [place] [address] IMAGING REPORT Signed PATIENT: DANNIELLE SMITH ACCOUNT: [id number] : 1965 LOCATION: ER AGE: 53 SEX: F EXAM STATUS: REG ER ORD. PHYSICIAN: KAREEN MURRAY APRN REASON: FALL, Spinal tenderness thoracic through tailbone PROCEDURE: CT LUMBAR SPINE WO CONTRAST CT chest thoracic spine without contrast, CT lumbar spine without contrast HISTORY: Fall, tenderness thoracic spine through tailbone CT thoracic spine Axial CT images were obtained to the thoracic spine. Visualized portions of the lungs are free of infiltrates. There is no pleural effusion. A fracture is not identified in the thoracic spine. There is mild degenerative change and hypertrophic change in the mid thoracic spine. Spine is in normal alignment. Descending aorta is mildly dilated measuring 3.3 cm. IMPRESSION: 1. No acute fracture noted in the thoracic spine. 2. Mild hypertrophic and degenerative change. 3. Mildly dilated thoracic aorta. End impression CT lumbar spine Axial CT images were obtained to the lumbar spine. There is mild scoliosis. There is a 4.2 x3 cm lesion in the left adrenal gland, CT numbers which are consistent with an adrenal adenoma. There is no adenopathy. There is mild atherosclerotic change in the aorta. There is no lumbar compression fracture. There is mild sclerosis at the right SI joint suggesting arthritis. There is sclerosis at the right pubic bone probably arthritis. There is mild lumbar facet arthritis in the lower lumbar spine. There is partial lumbarization of S1. There is bulging of the disc at L5-S1. There is bulging of the disc more on the left than on the right at L4-5. Upper lumbar discs are unremarkable. There is mild lower lumbar facet arthritis. The sacrum appears intact without fracture. Coccyx is in normal alignment although incompletely evaluated. IMPRESSION: 1. No acute fracture noted in the lumbar spine. 2. Bulging discs at L3-4-5 and L5-S1. 3. Transitional S1 vertebra. 4. Left adrenal adenoma. 5. Mild scoliosis. 6. Mild sclerosis at the SI joint mainly on the right suggesting arthritis. 7. Sclerosis at the pubic symphysis more on the right than on the left probably degenerative or osteitis pubis. RS Compliance Statement: One or more of the following individualized dose reduction techniques were utilized for this examination: 1. Automated exposure control 2. Adjustment of the mA and/or kV according to patient size 3. Use of iterative reconstruction technique Electronically signed by: Mekhi Banks MD (02/19/2019 6:48 PM) [facility] DICTATED and SIGNED BY: MEKHI BANKS MD DATE: 02/19/19 1848 Course & Med Decision Making Course & Med Decision Making Patient is a 53 year old female who presents with was at work today when she slipped and fell on some water on the floor and fell landing on her telephone. Patient complains of telephone pain and pain. Patient states she went to the work comp doctor of which took x-rays of her knee, hands, wrists and lumbar sacral and stated that she had contusions but wanted her to come to the emergency room because she saw something else in her back. Patient states she does not remember what the doctor said was wrong with her back. Patient is ambulatory. Alert and oriented. Speaks in full clear senses. Vital signs within normal limits. Patient rates her throbbing aching pain 8 out of 10. Patient is driving. No bruising or deformity felt or seen to the patient's back or tailbone area. Patient does have tenderness from the thoracic spine down through her tail bone. CT shows: 1. No acute fracture noted in the lumbar spine. 2. Bulging discs at L3-4-5 and L5-S1. 3. Transitional S1 vertebra. 4. Left adrenal adenoma. 5. Mild scoliosis. 6. Mild sclerosis at the SI joint mainly on the right suggesting arthritis. 7. Sclerosis at the pubic symphysis more on the right than on the left probably degenerative or osteitis pubis. 1. No acute fracture noted in the thoracic spine. 2. Mild hypertrophic and degenerative change. 3. Mildly dilated thoracic aorta. Patient to follow up with primary care provider. I will the patient muscle relaxer and pain medications. Dragon Disclaimer Dragon Disclaimer This electronic medical record was generated, in whole or in part, using a voice recognition dictation system. Departure Departure Impression: Primary Impression: Back pain Additional Impression: Lumbar strain Disposition: HOME, SELF-CARE Condition: STABLE Referrals: UNKNOWN PCP NAME (PCP) Patient Instructions: Back Pain, Adult, Contusion, Muscle Strain Additional Instructions: Follow-up with primary care provider. Take medications as prescribed. Scripts Orphenadrine Citrate (ORPHENADRINE CITRATE) 100 Mg Tablet.er 1 TAB PO BID, #20 TAB 1 Refill Prov: KAREEN MURRAY APRN 02/19/19 Hydrocodone/Apap 5-325 (NORCO 5-325 TABLET) 1 Each Tablet 1 TAB PO PRN Q6HRS PRN for PAIN, #10 TAB 0 Refills Prov: KAREEN MURRAY APRN 02/19/19 Problem Qualifiers Primary Impression: Back pain Back pain location: low back pain Chronicity: unspecified Back pain laterality: midline Sciatica presence: without sciatica Qualified Codes: M54.5 - Low back pain Additional Impression: Lumbar strain Encounter type: initial encounter Qualified Codes: S39.012A - Strain of muscle, fascia and tendon of lower back, initial encounter KAREEN MURRAY APRN Feb 19, 2019 18:22
--- NOTE | 2019-02-19 18:51 | RAD ---
CT chest thoracic spine without contrast, CT lumbar spine without contrast HISTORY: Fall, tenderness thoracic spine through tailbone CT thoracic spine Axial CT images were obtained to the thoracic spine. Visualized portions of the lungs are free of infiltrates. There is no pleural effusion. A fracture is not identified in the thoracic spine. There is mild degenerative change and hypertrophic change in the mid thoracic spine. Spine is in normal alignment. Descending aorta is mildly dilated measuring 3.3 cm. IMPRESSION: 1. No acute fracture noted in the thoracic spine. 2. Mild hypertrophic and degenerative change. 3. Mildly dilated thoracic aorta. End impression CT lumbar spine Axial CT images were obtained to the lumbar spine. There is mild scoliosis. There is a 4.2 x3 cm lesion in the left adrenal gland, CT numbers which are consistent with an adrenal adenoma. There is no adenopathy. There is mild atherosclerotic change in the aorta. There is no lumbar compression fracture. There is mild sclerosis at the right SI joint suggesting arthritis. There is sclerosis at the right pubic bone probably arthritis. There is mild lumbar facet arthritis in the lower lumbar spine. There is partial lumbarization of S1. There is bulging of the disc at L5-S1. There is bulging of the disc more on the left than on the right at L4-5. Upper lumbar discs are unremarkable. There is mild lower lumbar facet arthritis. The sacrum appears intact without fracture. Coccyx is in normal alignment although incompletely evaluated. IMPRESSION: 1. No acute fracture noted in the lumbar spine. 2. Bulging discs at L3-4-5 and L5-S1. 3. Transitional S1 vertebra. 4. Left adrenal adenoma. 5. Mild scoliosis. 6. Mild sclerosis at the SI joint mainly on the right suggesting arthritis. 7. Sclerosis at the pubic symphysis more on the right than on the left probably degenerative or osteitis pubis. PQRS Compliance Statement: One or more of the following individualized dose reduction techniques were utilized for this examination: 1. Automated exposure control 2. Adjustment of the mA and/or kV according to patient size 3. Use of iterative reconstruction technique Electronically signed by: Mekhi Erickson MD (02/19/2019 6:48 PM) [facility]
[2019-02-19] MEDS ORDERED: ORPH100T PO (19:19)
[2019-02-19] MEDS ORDERED: HYDR-3164 PO (19:19)
[2019-02-24] MEDS ORDERED: AMLO10TA8 PO (17:51)
[2019-02-24] MEDS ORDERED: ATEN25TA PO (17:51)
== END 2019-02-19 19:23 | disposition home or self-care (01) ==
LOC: ER 17:52
DX: S39.012A Strain of muscle, fascia and tendon of lower back, initial encounter (principal); M54.6 Pain in thoracic spine; J45.909 Unspecified asthma, uncomplicated; I10 Essential (primary) hypertension; Z90.89 Acquired absence of other organs; Z91.018 Allergy to other foods; W01.0XXA Fall on same level from slipping, tripping and stumbling without subsequent striking against object, initial encounter; Y93.89 Activity, other specified; Y92.89 Other specified places as the place of occurrence of the external cause; Y99.8 Other external cause status
CPT/HCPCS: 72128; 72131; 99284

== ENCOUNTER 2019-03-19 11:19 | Emergency (ER) | payer SELFPAY ==
[~2019-03-19] VITALS: Ht 167.6 cm; Wt 83.0 kg
[~2019-03-19 11:19] MED LIST changes: +AMLO10TA8 PO; +ATEN25TA PO; +ATOR20TA58 PO; +CHLO25TA10 PO; +LISI-130 PO; +Nicotine 21MG TD
--- NOTE | 2019-03-19 12:14 | PHYS DOC ---
Past Medical History Past Medical History: Asthma, CAD, High Cholesterol, Hypertension Additional Past Medical Histor: eye disease Past Surgical History: Appendectomy Additional Past Surgical Histo: left knee surgery Alcohol Use: None Drug Use: None Adult General Chief Complaint Chief Complaint: HYPERTENSION HPI HPI Patient is a 53 year old female with history of hypertension who presents with elevated blood pressure, 180s over 120s, and abdominal discomfort described as mild, dull, aching and worse with palpation. Patient was work comp appointment was referred to the ED for further evaluation of blood pressure. Patient takes lisinopril 40 mg, Norvasc 10 mg, and hydrochlorothiazide 25 mg daily. H had medications this morning. Denies headache, chest pain palpitations, shortness of breath. Denies decreased urinary output. Reports back pain related to work comp claim. No other acute symptoms or complaints. [] Review of Systems Review of Systems Constitutional: Denies fever or chills [] Eyes: Denies change in visual acuity, redness, or eye pain [] HENT: Denies nasal congestion or sore throat [] Respiratory: Denies cough or shortness of breath [] Cardiovascular: No additional information not addressed in HPI [] GI: Denies abdominal pain, nausea, vomiting, bloody stools or diarrhea [] : Denies dysuria or hematuria [] Musculoskeletal: Denies back pain or joint pain [] Integument: Denies rash or skin lesions [] Neurologic: Denies headache, focal weakness or sensory changes [] Endocrine: Denies polyuria or polydipsia [] All other systems were reviewed and found to be within normal limits, except as documented in this note. Current Medications Current Medications Current Medications Medications (Trade) Dose Ordered Sig/Erika Start Time Stop Time Status Last Admin Dose Admin Clonidine HCl (Catapres) 0.2 mg 1X ONCE 03/19/19 12:15 03/19/19 12:16 DC 03/19/19 12:41 0.2 MG Allergies Allergies Allergies Coded Allergies Type Severity Reaction Last Updated Verified No Known Medication Allergies Allergy Unknown 03/16/16 Yes Uncoded Allergies Type Severity Reaction Last Updated Verified BOLOGNA Allergy Intermediate BROKE OUT WITH HIVES, COUGHING 10/22/18 Physical Exam Physical Exam Constitutional: Well developed, well nourished, no acute distress, non-toxic appearance. [] HENT: Normocephalic, atraumatic, bilateral external ears normal, oropharynx moist, no oral exudates, nose normal. [] Eyes: PERRLA, EOMI, conjunctiva normal, no discharge. [] Neck: Normal range of motion, no tenderness, supple, no stridor. [] Cardiovascular:Heart rate regular rhythm, no murmur [] Lungs & Thorax: Bilateral breath sounds clear to auscultation [] Abdomen: Bowel sounds normal, soft, no tenderness, no masses, no pulsatile masses. [] Skin: Warm, dry, no erythema, no rash. [] Back: No tenderness, no CVA tenderness. [] Extremities: No tenderness, no cyanosis, no clubbing, ROM intact, no edema. [] Neurologic: Alert and oriented X 3, normal motor function, normal sensory f unction, no focal deficits noted. [] Psychologic: Affect normal, judgement normal, mood normal. [] Current Patient Data Vital Signs Vital Signs Date Time Temp Pulse Resp B/P (MAP) Pulse Ox O2 Delivery O2 Flow Rate FiO2 03/19/19 12:41 60 182/104 03/19/19 12:06 98.4 18 95 Room Air 98.4 Lab Values Laboratory Tests Test 03/19/19 12:46 03/19/19 13:20 White Blood Count 5.7 x10^3/uL (4.0-11.0) Red Blood Count 4.63 x10^6/uL (3.50-5.40) Hemoglobin 13.2 g/dL (12.0-15.5) Hematocrit 39.9 % (36.0-47.0) Mean Corpuscular Volume 86 fL (79-100) Mean Corpuscular Hemoglobin 28 pg (25-35) Mean Corpuscular Hemoglobin Concent 33 g/dL (31-37) Red Cell Distribution Width 14.9 % (11.5-14.5) H Platelet Count 208 x10^3/uL (140-400) Neutrophils (%) (Auto) 62 % (31-73) Lymphocytes (%) (Auto) 30 % (24-48) Monocytes (%) (Auto) 7 % (0-9) Eosinophils (%) (Auto) 1 % (0-3) Basophils (%) (Auto) 0 % (0-3) Neutrophils # (Auto) 3.5 x10^3/uL (1.8-7.7) Lymphocytes # (Auto) 1.7 x10^3/uL (1.0-4.8) Monocytes # (Auto) 0.4 x10^3/uL (0.0-1.1) Eosinophils # (Auto) 0.1 x10^3/uL (0.0-0.7) Basophils # (Auto) 0.0 x10^3/uL (0.0-0.2) D-Dimer (Haley) 0.27 ug/mlFEU (0.00-0.50) Sodium Level 143 mmol/L (136-145) Potassium Level 3.9 mmol/L (3.5-5.1) Chloride Level 104 mmol/L (98-107) Carbon Dioxide Level 27 mmol/L (21-32) Anion Gap 12 (6-14) Blood Urea Nitrogen 20 mg/dL (7-20) Creatinine 1.3 mg/dL (0.6-1.0) H Estimated GFR (Cockcroft-Gault) 51.5 BUN/Creatinine Ratio 15 (6-20) Glucose Level 96 mg/dL (70-99) Calcium Level 9.2 mg/dL (8.5-10.1) Total Bilirubin 0.3 mg/dL (0.2-1.0) Aspartate Amino Transferase (AST) 18 U/L (15-37) Alanine Aminotransferase (ALT) 22 U/L (14-59) Alkaline Phosphatase 103 U/L (46-116) Total Protein 7.5 g/dL (6.4-8.2) Albumin 3.6 g/dL (3.4-5.0) Albumin/Globulin Ratio 0.9 (1.0-1.7) L Urine Collection Type Unknown Urine Color Yellow Urine Clarity Clear Urine pH 6.5 Urine Specific [place] 1.010 Urine Protein 100 mg/dL (NEG-TRACE) Urine Glucose (UA) Negative mg/dL (NEG) Urine Ketones (Stick) Negative mg/dL (NEG) Urine Blood Negative (NEG) Urine Nitrite Negative (NEG) Urine Bilirubin Negative (NEG) Urine Urobilinogen Dipstick 1.0 mg/dL (0.2 mg/dL) Urine Leukocyte Esterase Negative (NEG) Urine RBC 1-2 /HPF (0-2) Urine WBC 0 /HPF (0-4) Urine Squamous Epithelial Cells Mod /LPF Urine Bacteria 0 /HPF (0-FEW) Urine Hyaline Casts Few /HPF Urine Mucus Slight /LPF Laboratory Tests 03/19/19 12:46 Laboratory Tests 03/19/19 12:46 EKG EKG [EKG: reviewed] Radiology/Procedures Radiology/Procedures [] Course & Med Decision Making Course & Med Decision Making Pertinent Labs and Imaging studies reviewed. (See chart for details) [Patient's blood pressure improved with treatment. Patient resting template. Lab work reviewed. Recommendations are to follow-up with PCP for blood pressure management and to address back pain.] Dragon Disclaimer Dragon Disclaimer This electronic medical record was generated, in whole or in part, using a voice recognition dictation system. Departure Departure Impression: Primary Impression: Accelerated hypertension Additional Impression: Back pain Disposition: 01 HOME, SELF-CARE Condition: STABLE Referrals: UNKNOWN PCP NAME (PCP) Patient Instructions: Abdominal Pain (Nonspecific), Hypertension Additional Instructions: Please continue home medication. Follow-up with your PCP for reevaluation of yo ur blood pressure early next week. Follow-up with your work comp physician for further management of back pain. Problem Qualifiers DOMINGA CONTRERAS DO Mar 19, 2019 12:14
[2019-03-19] MEDS ORDERED: cloNIDine HCL 0.1 MG TABLET PO ONE (12:15)
--- NOTE | 2019-03-19 12:33 | EKG ---
[facility] [address] [place] [address] Test Date: 2019-03-19 Test Time: 12:24:01 Pat Name: DANNIELLE CHAUDHRY Department: Room: Gender: F Is Consultant: : 1965 Requested By: DOMINGA CONTRERAS Order Number: [id number] Reading MD: Measurements Intervals [place] Rate: 53 P: -39 NE: 164 QRS: -40 QRSD: 90 T: 139 QT: 502 QTc: 474 Interpretive Statements SINUS RHYTHM POSSIBLE LEFT ATRIAL ABNORMALITY ABNORMAL LEFT AXIS DEVIATION R-S TRANSITION ZONE IN V LEADS DISPLACED TO THE LEFT LEFT ANTERIOR FASCICULAR BLOCK LVH WITH REPOLARIZATION ABNORMALITY QRS(T) CONTOUR ABNORMALITY CONSIDER ANTEROSEPTAL MYOCARDIAL DAMAGE PROLONGED QT ABNORMAL ECG RI6.01 No previous ECG available for comparison
[2019-03-19 12:59] LABS: BASO % 0 % (0-3); EOS # 0.1 x10^3/uL (0.0-0.7); EOS % 1 % (0-3); HEMATOCRIT 39.9 % (36.0-47.0); HEMOGLOBIN 13.2 g/dL (12.0-15.5); LYMPH # 1.7 x10^3/uL (1.0-4.8); LYMPH % 30 % (24-48); MEAN CORPUSCULAR HEMOGLOBIN 28 pg (25-35); MEAN CORPUSCULAR HGB CONC 33 g/dL (31-37); MEAN CORPUSCULAR VOLUME 86 fL (79-100); MONO # 0.4 x10^3/uL (0.0-1.1); MONO % 7 % (0-9); NEUT # 3.5 x10^3/uL (1.8-7.7); NEUT % 62 % (31-73); PLATELET COUNT 208 x10^3/uL (140-400); RED BLOOD COUNT 4.63 x10^6/uL (3.50-5.40); RED CELL DISTRIBUTION WIDTH 14.9 % (11.5-14.5); WHITE BLOOD COUNT 5.7 x10^3/uL (4.0-11.0)
[2019-03-19 13:09] LABS: CALCIUM 9.2 mg/dL (8.5-10.1); CREATININE 1.3 mg/dL (0.6-1.0); GFR 51.5; POTASSIUM 3.9 mmol/L (3.5-5.1)
[2019-03-19 13:15] LABS: ALBUMIN 3.6 g/dL (3.4-5.0); ALBUMIN/GLOBULIN RATIO 0.9 (1.0-1.7); TOTAL BILIRUBIN 0.3 mg/dL (0.2-1.0); TOTAL PROTEIN 7.5 g/dL (6.4-8.2)
[2019-03-19 13:38] LABS: BILIRUBIN,URINE NEGATIVE (NEG); CLARITY,URINE CLEAR; COLOR,URINE YELLOW; NITRITE,URINE NEGATIVE (NEG); PH,URINE 6.5; PROTEIN,URINE 100 mg/dL (NEG-TRACE)
[2019-03-19 13:44] LABS: SQUAMOUS EPITHELIAL CELL,UR MOD /LPF
[2019-03-19 13:45] LABS: HYALINE CASTS, URINE FEW /HPF
[2019-03-19 13:46] LABS: BACTERIA,URINE 0 /HPF (0-FEW); WBC,URINE 0 /HPF (0-4)
[2019-03-19 14:10] VITALS: BP 156/86
== END 2019-03-19 14:55 | disposition home or self-care (01) ==
LOC: ER 11:19
DX: I10 Essential (primary) hypertension (principal); M54.9 Dorsalgia, unspecified; R10.9 Unspecified abdominal pain; E78.00 Pure hypercholesterolemia, unspecified; J45.909 Unspecified asthma, uncomplicated; I25.10 Atherosclerotic heart disease of native coronary artery without angina pectoris; Z90.89 Acquired absence of other organs; Z88.8 Allergy status to other drugs, medicaments and biological substances
CPT/HCPCS: 36415; 80053; 81001; 85025; 85379; 93005; 99285-25

== ENCOUNTER → 2019-12-31 | Outpatient (CLI) | payer OTHER ==
[2019-07-18 11:00] VITALS: BP 151/82
[~2019-12-31] MED LIST changes: +CONTRAST GIVEN. MC PRN; +IOHEXOL 300 MG/ML 100ML VIAL. IV ONE; +LISI1TAB23 PO; -LISI1TAB3 PO
--- NOTE | 2019-12-31 08:23 | RAD ---
CT abdomen pelvis without and with contrast. HISTORY: periumbilical Pain, heme-positive stool CT scan of the abdomen and pelvis was done before and after 60 mL Omnipaque 300 contrast. There is minimal atelectasis or groundglass infiltrate in the right middle lobe. Is no pleural effusion. A renal calculus is not identified on the precontrast images. There is no calcified gallstone. There is a 4.4 x 3.5 cm left renal lesion which is low in density with a CT number of 4 on the precontrast images consistent with an adrenal adenoma. Postcontrast images show the liver has a normal appearance without a focal lesion. Spleen is unremarkable. Right adrenal gland is normal. A pancreatic lesion is not identified. There are incidental cysts in both kidneys, no further follow-up is warranted. There is no retroperitoneal adenopathy. Bowel pattern is normal. Uterus and ovaries are normal. There is no free fluid or free air. There is not evidence of a diverticulitis. Delayed images show the intrarenal collecting system of the kidneys are normal. The ureters and bladder did not have contrast on the delayed images. No other abdominal or pelvic mass is noted. There is mild scoliosis in the lumbar spine. IMPRESSION: 1. No abdominal or pelvic mass or other acute finding noted. 2. Left adrenal adenoma PQRS Compliance Statement: One or more of the following individualized dose reduction techniques were utilized for this examination: 1. Automated exposure control 2. Adjustment of the mA and/or kV according to patient size 3. Use of iterative reconstruction technique Electronically signed by: Mekhi Erickson MD (12/31/2019 8:20 AM) [id number]
== END | disposition home or self-care (01) ==
LOC: CT 07:04
PROVIDERS: ATTEND Family Medicine
DX: D35.02 Benign neoplasm of left adrenal gland (principal); R19.5 Other fecal abnormalities
CPT/HCPCS: 74178; Q9967

== ENCOUNTER → 2020-11-22 | Outpatient (CLI) | payer OTHER ==
[2019-07-18 11:00] VITALS: BP 151/82
[~2020-11-22] MED LIST changes: +AMLO-187 PO; -AMLO10TA8 PO; -CLIN300C8 PO; +CLIN300C9 PO; -CONTRAST GIVEN. MC PRN; -IOHEXOL 300 MG/ML 100ML VIAL. IV ONE
[2020-11-22] MEDS: ZOLPIDEM 5 MG TABLET. PO ONE (22:35)
[2020-11-22] MEDS: ACETAMINOPHEN 500 MG TABLET PO ONE (22:35)
--- NOTE | 2020-11-23 12:12 | SLEEP ---
DATE OF STUDY: 11/22/2020 SLEEP STUDY ATTENDING PHYSICIAN: Elizabeth Yan MD REFERRING PHYSICIAN: Castillo Hitchcock MD The patient is 55 year old who weighs 215 pounds with a BMI of 34. The patient's [place] score was 13. The patient underwent a diagnostic sleep study performed at [facility]. Review of medications also revealed use of bupropion and pregabalin. During the night study, the patient spent 422 minutes in bed and slept for 339 minutes with a sleep efficiency of 80%. Sleep latency was 55 minutes with a REM latency of 69 minutes. Sleep architecture showed normal stage 1 and stage 2 sleep, increased slow wave and reduced REM sleep. During the night study, the patient had 1 obstructive apnea, no mixed apneas, 3 central apneas and 20 hypopneas. The patient's AHI was 4 per hour with a supine AHI 1 per hour and REM AHI of 18 per hour. EKG monitoring revealed normal sinus rhythm, average heart rate 56 beats per minute. Nocturnal oximetry study revealed a mean oxygen saturation of 96% with the lowest of 90%. No PLMs observed. Due to low AHI, the patient did not meet the split night criteria for CPAP initiation. IMPRESSION: 1. Overall, no clinically significant sleep disordered breathing. The patient's AHI for the entire night was 4 per hour. Mild REM related hypopneas were observed resulting in a REM AHI of 18 per hour. 2. No clinically significant nocturnal hypoxia. 3. No PLMs. RECOMMENDATIONS: 1. The patient did not meet the split night criteria for CPAP initiation due to low AHI. 2. The patient's symptoms of excessive daytime somnolence could be related to the effect of medications. If clinical suspicion for other disorders such as narcolepsy is high then the patient would require multiple sleep latency test. 3. Weight loss is advised. 4. Avoid [employer] depressants. 5. Cautioned regarding driving until the patient's hypersomnia is resolved with above recommendations. SHARDA ARMSTRONG MD DR: DELIA/oscar JOB#: [id number] / [id number] CASTILLO Valadez MD, WHITNEY MD
== END ==
LOC: SLPLAB 19:15
PROVIDERS: ATTEND Internal Medicine Pulmonary Disease
DX: G47.33 Obstructive sleep apnea (adult) (pediatric) (principal)
CPT/HCPCS: 95810

== ENCOUNTER 2020-12-15 13:29 | Emergency (ER) | payer MEDICAID, OTHER ==
[~2020-12-15] VITALS: Ht 165.1 cm; Wt 94.1 kg
--- NOTE | 2020-12-15 14:51 | RAD ---
EXAMINATION: US DPLX VENOUS EXTREMITY LOWER LT (LOWER EXTREMITY VENOUS ULTRASOUND) CLINICAL HISTORY: LLE cellulitis pain TECHNIQUE: Sonographic grayscale images obtained of the left lower extremity deep venous system with color flow Doppler, compression, and augmentation techniques as indicated. Images obtained and store d in a permanent archive. COMPARISON: None FINDINGS: No evidence of absent flow or incompressibility within the common femoral vein, femoral vein, or popl iteal vein. Visualized calf veins appear patent on limited evaluation. IMPRESSION: No evidence of left lower extremity DVT. Electronically signed by: Chriss Francisco DO (12/15/2020 2:48 PM) [facility]
[2020-12-15] MEDS ORDERED: CLINDAMYCIN HCL 150 MG CAPSULE. PO ONE (15:00)
[2020-12-15] MEDS ORDERED: HYDROcodone/APAP 5/325MG 1 TAB TABLET PO ONE (15:00)
[2020-12-15] MEDS ORDERED: CLIN150C15 PO (15:53)
[2020-12-15] MEDS ORDERED: HYDR-2761 PO (15:53)
--- NOTE | 2020-12-15 15:54 | PHYS DOC ---
Past Medical History Past Medical History: Asthma, CAD, High Cholesterol, Hypertension, Migraines Additional Past Medical Histor: eye disease Past Surgical History: Appendectomy Additional Past Surgical Histo: left knee surgery Smoking Status: Current Every Day Smoker Alcohol Use: None Drug Use: None General Adult EDM: Chief Complaint: LOWER EXT PAIN HPI: HPI: Patient is a 55 year old female who presents to the ED today complaining of left lower extremity redness, pain and swelling, symptoms began 2 days ago. Patient denies any fever. Patient rates the pain as moderate worse on weightbearing. Denies anything specifically relieving the pain Review of Systems: Review of Systems: Constitutional: Denies fever or chills. [] : Denies dysuria. [] Musculoskeletal: Denies back pain or joint pain. [] Integument: Reports left lower extremity swelling and redness Neurologic: Denies headache, focal weakness or sensory changes. [] Psychiatric: Denies depression or anxiety. [] Heart Score: C/O Chest Pain: N/A Risk Factors: Risk Factors: DM, Current or recent (<one month) smoker, HTN, HLP, family history of CAD, obesity. Risk Scores: Score 0 - 3: 2.5% MACE over next 6 weeks - Discharge Home Score 4 - 6: 20.3% MACE over next 6 weeks - Admit for Clinical Observation Score 7 - 10: 72.7% MACE over next 6 weeks - Early Invasive Strategies Current Medications: Current Medications Medications (Trade) Dose Ordered Sig/Erika Start Time Stop Time Status Last Admin Dose Admin Acetaminophen/ Hydrocodone Bitart (Lortab 5/325) 1 tab 1X ONCE 12/15/20 15:00 12/15/20 15:01 DC Clindamycin HCl (Cleocin) 450 mg 1X ONCE 12/15/20 15:00 12/15/20 15:01 DC Allergies: Allergies: Allergies Coded Allergies Type Severity Reaction Last Updated Verified No Known Medication Allergies Allergy Unknown 03/16/16 Yes Uncoded Allergies Type Severity Reaction Last Updated Verified BOLOGNA Allergy Intermediate BROKE OUT WITH HIVES, COUGHING 10/22/18 Physical Exam: PE: Constitutional: Well developed, well nourished, no acute distress, non-toxic appearance. [] Skin: Left perera with mild redness consistent with cellulitis, the skin is warm, +2 left pedal pulse. Negative Homans' sign to the left lower extremity. Cap refill less than 2 seconds to left toes Back: No tenderness, no CVA tenderness. [] Extremities: No tenderness, no cyanosis, no clubbing, ROM intact, no edema. [] Neurologic: Alert and oriented X 3, normal motor function, normal sensory function, no focal deficits noted. [] Psychologic: Affect normal, judgement normal, mood normal. [] Current Patient Data: Vital Signs: Vital Signs Date Time Temp Pulse Resp B/P (MAP) Pulse Ox O2 Delivery O2 Flow Rate FiO2 12/15/20 14:06 98.2 63 20 174/87 (116) 97 Room Air 98.2 EKG: EKG: [] Radiology/Procedures: Radiology/Procedures: []PROCEDURE: VENOUS LOWER EXTREMITY LEFT EXAMINATION: US DPLX VENOUS EXTREMITY LOWER LT (LOWER EXTREMITY VENOUS ULTRASOUND) CLINICAL HISTORY: LLE cellulitis pain TECHNIQUE: Sonographic grayscale images obtained of the left lower extremity deep venous system with color flow Doppler, compression, and augmentation techniques as indicated. Images obtained and stored in a permanent archive. COMPARISON: None FINDINGS: No evidence of absent flow or incompressibility within the common femoral vein, femoral vein, or popliteal vein. Visualized calf veins appear patent on limited evaluation. IMPRESSION: No evidence of left lower extremity DVT. Electronically signed by: Chriss Warner DO (12/15/2020 2:48 PM) [facility] DICTATED and SIGNED BY: CHRISS WARNER DO DATE: 12/15/20 [id number] 0 Course & Med Decision Making: Course & Med Decision Making Pertinent Labs and Imaging studies reviewed. (See chart for details) This is a 55-year-old female patient presenting to the ED today with cellulitis of the left lower extremity. Venous Doppler of the left lower extremity is negative. Patient is afebrile. Tetanus is up-to-date. Discharged on cli ndamycin. Provided return precautions Dragon Disclaimer: Agapito Disclaimer: This electronic medical record was generated, in whole or in part, using a voice recognition dictation system. Departure Departure Impression: Primary Impression: Cellulitis of left lower extremity Disposition: HOME / SELF CARE / HOMELESS Condition: STABLE Referrals: UNKNOWN PCP NAME (PCP) follow up with your doctor in 1 week Patient Instructions: Cellulitis, [id number] Additional Instructions: You were seen for cellulitis of the left lower extremity. Try to elevate the extremity. Take the prescribed antibiotics until completed. Please follow-up with your doctor in 1 to 2 weeks, come back to the ED at any point symptoms worsen Scripts Hydrocodone Bit/Acetaminophen (HYDROCODONE-APAP 5-325 ) 1 Tab Tablet 1 TAB PO PRN Q6HRS PRN for PAIN, #10 TAB 0 Refills Prov: YOJANA ROLLINS APRN 12/15/20 Clindamycin Hcl (CLINDAMYCIN HCL) 150 Mg Capsule 3 CAP PO TID, #90 CAP Prov: YOJANA ROLLINS APRN 12/15/20 YOJANA ROLLINS APRN December 15, 2020 15:54
[2020-12-15 15:57] VITALS: BP 152/79
== END 2020-12-15 16:14 | disposition home or self-care (01) ==
LOC: ER 13:29
DX: L03.116 Cellulitis of left lower limb (principal); J45.909 Unspecified asthma, uncomplicated; I25.10 Atherosclerotic heart disease of native coronary artery without angina pectoris; E78.00 Pure hypercholesterolemia, unspecified; I10 Essential (primary) hypertension; G43.909 Migraine, unspecified, not intractable, without status migrainosus; F17.200 Nicotine dependence, unspecified, uncomplicated
CPT/HCPCS: 93971; 99285

== ENCOUNTER → 2021-02-10 | Emergency (ER) | payer MEDICAID ==
[~2021-02-10] VITALS: Ht 165.1 cm; Wt 93.1 kg
[~2021-02-10] MED LIST changes: +CLIN150C15 PO; +HYDR-2761 PO; +IV NORMAL SALINE 1000ML BAG 1,000 ML IV SCH
[2021-02-10 12:34] LABS: BILIRUBIN,URINE NEGATIVE (NEG); CLARITY,URINE CLEAR; COLOR,URINE YELLOW; NITRITE,URINE NEGATIVE (NEG); PH,URINE 5.5 (<5.0-8.0); PROTEIN,URINE >=300 mg/dL (NEG-TRACE); UROBILINOGEN,URINE 0.2 mg/dL (0.2 mg/dL)
--- NOTE | 2021-02-10 12:34 | PHYS DOC ---
Past Medical History Past Medical History: Asthma, CAD, High Cholesterol, Hypertension, Migraines Additional Past Medical Histor: eye disease Past Surgical History: Appendectomy Additional Past Surgical Histo: left knee surgery Smoking Status: Current Every Day Smoker Alcohol Use: None Drug Use: None General Adult EDM: Chief Complaint: ABDOMINAL PAIN HPI: HPI: Patient is a 55 year old female who presents with 1 week of generalized abdominal pain and bilateral flank is an achy tenderness type feeling. She states she went and saw Dr. De Guzman yesterday. She states that they called her today and told her that her blood work came back showing that she had some kidney failure. Patient rates her overall pain a 3 out of 10. Patient has a history of appendectomy, CAD, smoker, left knee surgery, hypertension, high cholesterol, asthma, diabetes, migraine. Denies nausea, vomiting, diarrhea, fever, cough, shortness of breath, chest pain, urinary symptoms, dizziness, headache, numbness or tingling, focal weakness. Review of Systems: Review of Systems: Constitutional: Denies fever or chills. [] Eyes: Denies change in visual acuity. [] HENT: Denies nasal congestion or sore throat. [] Respiratory: Denies cough or shortness of breath. [] Cardiovascular: Denies chest pain or edema. [] GI: + abdominal pain, denies nausea, vomiting, bloody stools or diarrhea. [] : Denies dysuria. [] Musculoskeletal: + Bilateral back pain or denies joint pain. [] Integument: Denies rash. [] Neurologic: Denies headache, focal weakness or sensory changes. [] Endocrine: Denies polyuria or polydipsia. [] Lymphatic: Denies swollen glands. [] Psychiatric: Denies depression or anxiety. [] Heart Score: C/O Chest Pain: No Risk Factors: Risk Factors: DM, Current or recent (<one month) smoker, HTN, HLP, family hi story of CAD, obesity. Risk Scores: Score 0 - 3: 2.5% MACE over next 6 weeks - Discharge Home Score 4 - 6: 20.3% MACE over next 6 weeks - Admit for Clinical Observation Score 7 - 10: 72.7% MACE over next 6 weeks - Early Invasive Strategies Current Medications: Current Medications Medications (Trade) Dose Ordered Sig/Erika Start Time Stop Time Status Last Admin Dose Admin Sodium Chloride 1,000 ml @ 1,000 mls/hr Q1H 02/10/21 12:30 02/10/21 13:29 Allergies: Allergies: Allergies Coded Allergies Type Severity Reaction Last Updated Verified No Known Medication Allergies Allergy Unknown 03/16/16 Yes Uncoded Allergies Type Severity Reaction Last Updated Verified BOLOGNA Allergy Intermediate BROKE OUT WITH HIVES, COUGHING 10/22/18 Physical Exam: PE: Constitutional: Well developed, well nourished, no acute distress, non-toxic appearance. [] HENT: Normocephalic, atraumatic, bilateral external ears normal, oropharynx moist, no oral exudates, nose normal. [] Eyes: PERRLA, EOMI, conjunctiva normal, no discharge. [] Neck: Normal range of motion, no tenderness, supple, no stridor. [] Cardiovascular:Heart rate regular rhythm, no murmur [] Lungs & Thorax: Bilateral breath sounds clear to auscultation [] Abdomen: Bowel sounds normal, soft, generalized tenderness, no masses, no pulsatile masses. [] Skin: Warm, dry, no erythema, no rash. [] Back: No tenderness, no CVA tenderness. [] Extremities: No tenderness, no cyanosis, no clubbing, ROM intact, no edema. [] Neurologic: Alert and oriented X 3, normal motor function, normal sensory function, no focal deficits noted. [] Psychologic: Affect normal, judgement normal, mood normal. [] EKG: EK and read by Dr. Henson is sinus rhythm and T abnormality in 1 and aVL. Radiology/Procedures: Radiology/Procedures: [] Impression: [facility] [address] [place], [place] [id number] IMAGING REPORT Signed PATIENT: DANNIELLE CHAUDHRY LACCOUNT: [id number] : 1965 LOCATION: ER AGE: 55 SEX: F EXAM STATUS: PRE ER ORD. PHYSICIAN: KAREEN MURRAY APRN REASON: abd pain, NOT READY. PROCEDURE: PORTABLE CHEST 1V Single AP view of the chest. Comparison: 02/24/2019. Indication: Abdominal pain Findings: The heart is enlarged but stable. There is no pneumothorax or effusion. No air space or interstitial disease. Impression: 1. No acute cardiopulmonary process. Electronically signed by: Sha Maria MD (02/10/2021 1:14 PM) [id number] DICTATED and SIGNED BY: SHA MARIA MD DATE: 02/10/21 [id number] [facility] [address] [place] [address] IMAGING REPORT Signed PATIENT: DANNIELLE CHAUDHRY LACCOUNT: [id number] : 1965 LOCATION: ER AGE: 55 SEX: F EXAM STATUS: REG ER ORD. PHYSICIAN: KAREEN MURRAY APRN REASON: abd pain PROCEDURE: CT ABDOMEN PELVIS WO CONTRAST Exam: CT abdomen/pelvis without intravenous contrast Indication: Abdominal pain Comparison: CT abdomen pelvis 12/31/2019 Technique: Helical CT imaging performed of the abdomen and pelvis without the use of intravenous contrast. Sagittal and coronal reformats were obtained. One or more of the following individualized dose reduction techniques were utilized for this examination: 1. Automated exposure control 2. Adjustment of the mA and/or kV according to patient size 3. Use of iterative reconstruction technique. Findings: Inherently limited evaluation without intravenous contrast. Lower chest: Lung bases are clear. Stable upper limit of normal heart size. Liver: The liver is mildly enlarged measuring 20 cm craniocaudally. Normal hepatic attenuation. Gallbladder/Biliary Tree: The gallbladder is contracted. Bile ducts are normal. Pancreas: Normal. Spleen: Normal. Adrenal Glands: A 4 cm left adrenal adenoma is unchanged. Right adrenal gland is normal. Kidneys/Ureters/Bladder: Kidneys are normal in size. No nephrolithiasis or hydronephrosis.. 2 cm simple left renal cyst is unchanged. Ureters and bladder are normal. Reproductive Organs: Uterus is anteverted. No adnexal mass. Stomach, small bowel, and colon: Stomach is normal. There is no small bowel obstruction. The colon is unremarkable. Vasculature: Abdominal aorta is normal in caliber. Mild calcified aortoiliac atherosclerosis. Lymph Nodes: No lymphadenopathy. Peritoneum and retroperitoneum: No free fluid or free air. Bones: No acute osseous abnormality. There is transitional anatomy at the lumbosacral junction. Mild lower lumbar facet arthrosis. Mild degenerative joint disease of the pubic symphysis. Impression: 1. No acute abnormality in the abdomen and pelvis. 2. Unchanged left adrenal adenoma and simple left renal cyst. 3. Mild hepatomegaly. 4. Mild calcified aortoiliac atherosclerosis. Electronically signed by: Yocasta Jade MD (02/10/2021 1:25 PM) [id number] DICTATED and SIGNED BY: YOCASTA JADE MD DATE: 02/10/21 [id number] Course & Med Decision Making: Course & Med Decision Making Pertinent Labs and Imaging studies reviewed. (See chart for details) See HPI. Alert and oriented x4. Ambulatory with a steady gait. Speaks in full clear sentences. No CVA tenderness. Abdomen is generalized tenderness throughout. Abdomen is soft. Lungs are clear in upper lobes and diminished in lower lobes. Afebrile. Skin pink warm and dry. I went over the blood work with Dr. Gabriel. Patient is at her baseline creat. Her BUN is slightly bumped at 25. I gave her a liter of fluid. Rest of her blood work is generally unremarkable and there is nothing acute. Patient will be discharged home and follow-up with her primary care and sweet pickled fruit maker. Dr. Gabriel agrees that the patient can be discharged home. [] Agapito Disclaimer: Agapito Disclaimer: This electronic medical record was generated, in whole or in part, using a voice recognition dictation system. Departure Departure Impression: Primary Impression: Abnormal laboratory test Additional Impression: Bilateral flank pain Disposition: HOME / SELF CARE / HOMELESS Condition: STABLE Referrals: UNKNOWN PCP NAME (PCP) Patient Instructions: Flank Pain Additional Instructions: Follow-up with primary care provider and drink plenty of fluids. I have also referred you to a sweet pickled fruit maker. KAREEN MURRAY EDITOR Feb 10, 2021 12:34
[2021-02-10 12:44] LABS: BARBITURATES NEG (NEG); BENZODIAZEPINES NEG (NEG); CANNABINOIDS NEG (NEG); COCAINE NEG (NEG); METHADONE NEG (NEG); OPIATES NEG (NEG); PHENCYCLIDINE NEG (NEG)
[2021-02-10 12:47] LABS: AMPHETAMINE/METHAMPHETAMINE NEG (NEG)
[2021-02-10 13:00] LABS: BACTERIA,URINE 0 /HPF (0-FEW); RBC,URINE 0 /HPF (0-2); WBC,URINE 0 /HPF (0-4)
[2021-02-10 13:05] LABS: BASO # 0.1 x10^3/uL (0.0-0.2); BASO % 1 % (0-3); EOS # 0.1 x10^3/uL (0.0-0.7); EOS % 2 % (0-3); HEMATOCRIT 33.8 % (36.0-47.0); LYMPH % 28 % (24-48); MEAN CORPUSCULAR HEMOGLOBIN 26 pg (25-35); MEAN CORPUSCULAR HGB CONC 32 g/dL (31-37); MEAN CORPUSCULAR VOLUME 81 fL (79-100); MONO # 0.7 x10^3/uL (0.0-1.1); MONO % 9 % (0-9); NEUT # 4.4 x10^3/uL (1.8-7.7); NEUT % 61 % (31-73); PLATELET COUNT 228 x10^3/uL (140-400); RED CELL DISTRIBUTION WIDTH 17.2 % (11.5-14.5); WHITE BLOOD COUNT 7.3 x10^3/uL (4.0-11.0)
--- NOTE | 2021-02-10 13:17 | RAD ---
Single AP view of the chest. Comparison: 02/24/2019. Indication: Abdominal pain Findings: The heart is enlarged but stable. There is no pneumothorax or effusion. No air space or interstitial disease. Impression: 1. No acute cardiopulmonary process. Electronically signed by: Sha Maria MD (02/10/2021 1:14 PM) [id number]
--- NOTE | 2021-02-10 13:28 | RAD ---
Exam: CT abdomen/pelvis without intravenous contrast Indication: Abdominal pain Comparison: CT abdomen pelvis 12/31/2019 Technique: Helical CT imaging performed of the abdomen and pelvis without the use of intravenous cont rast. Sagittal and coronal reformats were obtained. One or more of the following individualized dose reduction techniques were utilized for this examinat ion: 1. Automated exposure control 2. Adjustment of the mA and/or kV according to patient size 3. Use of iterative reconstruction technique. Findings: Inherently limited evaluation without intravenous contrast. Lower chest: Lung bases are clear. Stable upper limit of normal heart size. Liver: The liver is mildly enlarged measuring 20 cm craniocaudally. Normal hepatic attenuation. Gallbladder/Biliary Tree: The gallbladder is contracted. Bile ducts are normal. Pancreas: Normal. Spleen: Normal. Adrenal Glands: A 4 cm left adrenal adenoma is unchanged. Right adrenal gland is normal. Kidneys/Ureters/Bladder: Kidneys are normal in size. No nephrolithiasis or hydronephrosis.. 2 cm simp le left renal cyst is unchanged. Ureters and bladder are normal. Reproductive Organs: Uterus is anteverted. No adnexal mass. Stomach, small bowel, and colon: Stomach is normal. There is no small bowel obstruction. The colon is unremarkable. Vasculature: Abdominal aorta is normal in caliber. Mild calcified aortoiliac atherosclerosis. Lymph Nodes: No lymphadenopathy. Peritoneum and retroperitoneum: No free fluid or free air. Bones: No acute osseous abnormality. There is transitional anatomy at the lumbosacral junction. Mild lower lumbar facet arthrosis. Mild degenerative joint disease of the pubic symphysis. Impression: 1. No acute abnormality in the abdomen and pelvis. 2. Unchanged left adrenal adenoma and simple left renal cyst. 3. Mild hepatomegaly. 4. Mild calcified aortoiliac atherosclerosis. Electronically signed by: Yocasta Jade MD (02/10/2021 1:25 PM) [id number]
[2021-02-10 13:36] LABS: CREATININE 1.4 mg/dL (0.6-1.0); GFR 46.9; POTASSIUM 5.1 mmol/L (3.5-5.1)
[2021-02-10 13:40] LABS: ALBUMIN 3.6 g/dL (3.4-5.0); ALBUMIN/GLOBULIN RATIO 0.9 (1.0-1.7); TOTAL BILIRUBIN 0.2 mg/dL (0.2-1.0); TOTAL PROTEIN 7.4 g/dL (6.4-8.2)
[2021-02-10 14:03] VITALS: BP 179/95
--- NOTE | 2021-02-10 14:07 | EKG ---
[facility] [address] [place] [id number] Test Date: 2021-02-10 Test Time: 12:37:12 Pat Name: DANNIELLE CHAUDHRY Department: Room: Gender: F Protective Officer: : 1965 Requested By: KAREEN MURRAY Order Number: [id number] Reading MD: Jason Jones Measurements Intervals [place] Rate: 57 P: 236 LA: 136 QRS: -28 QRSD: 86 T: 52 QT: 380 QTc: 373 Interpretive Statements SINUS RHYTHM LEFT ATRIAL ABNORMALITY LEFTWARD AXIS T ABNORMALITY IN HIGH LATERAL LEADS ABNORMAL ECG RI6.02 Electronically Signed On 02-15-2021 12:38:58 CDT by Jason Jones
== END ==
LOC: ER 12:20
DX: R79.89 Other specified abnormal findings of blood chemistry (principal); R10.84 Generalized abdominal pain; M54.89 Other dorsalgia; J45.909 Unspecified asthma, uncomplicated; I25.10 Atherosclerotic heart disease of native coronary artery without angina pectoris; E78.00 Pure hypercholesterolemia, unspecified; I10 Essential (primary) hypertension; G43.909 Migraine, unspecified, not intractable, without status migrainosus; E11.9 Type 2 diabetes mellitus without complications; F17.200 Nicotine dependence, unspecified, uncomplicated; Z90.89 Acquired absence of other organs
CPT/HCPCS: 36415; 71045; 74176; 80053; 80307; 81001; 83690; 84484; 85025; 93005; 96360; 96361; 99285; J7030

== ENCOUNTER → 2021-03-01 | Outpatient (CLI) | payer MEDICAID ==
[2021-02-10 14:03] VITALS: BP 179/95
[~2021-03-01] MED LIST changes: -IV NORMAL SALINE 1000ML BAG 1,000 ML IV SCH
--- NOTE | 2021-03-01 17:18 | RAD ---
Exam: CT abdomen/pelvis without intravenous contrast Indication: Generalized abdominal pain Comparison: CT abdomen pelvis 02/10/2021 Technique: Helical CT imaging performed of the abdomen and pelvis without the use of intravenous cont rast. Sagittal and coronal reformats were obtained. One or more of the following individualized dose reduction techniques were utilized for this examinat ion: 1. Automated exposure control 2. Adjustment of the mA and/or kV according to patient size 3. Use of iterative reconstruction technique. Findings: Inherently limited evaluation without intravenous contrast. Lower chest: Mild atelectasis and motion artifact in the lung bases. The heart is normal in size. Liver: Unremarkable noncontrast appearance the liver. Gallbladder/Biliary Tree: The gallbladder is contracted. Bile ducts are normal. Pancreas: Normal. Spleen: No splenomegaly. There are calcified splenic granulomas Adrenal Glands: Unchanged 4 cm left adrenal adenoma. Right adrenal gland is normal. Kidneys/Ureters/Bladder: Kidneys are normal in size. No hydronephrosis. Unchanged 2.4 cm fluid densit y cyst in the left kidney. No nephrolithiasis or hydronephrosis. Ureters and bladder are normal Reproductive Organs: Uterus is unremarkable. No adnexal mass. Stomach, small bowel, and colon: Stomach is normal. There is no small bowel obstruction. The colon is unremarkable. Appendix is not visualized. Vasculature: Abdominal aorta is normal in caliber. There is mild calcified aortoiliac atherosclerosis . Lymph Nodes: No lymphadenopathy. Peritoneum and retroperitoneum: No free fluid or free air. Bones: No acute osseous abnormality. Impression: 1. No acute abnormality in the abdomen and pelvis. 2. Unchanged left adrenal adenoma. Electronically signed by: Yocasta Jade MD (03/01/2021 5:16 PM) [id number]
== END ==
LOC: CT 09:11
PROVIDERS: ATTEND Family Medicine
DX: N28.1 Cyst of kidney, acquired (principal); K82.0 Obstruction of gallbladder; D73.89 Other diseases of spleen; D35.02 Benign neoplasm of left adrenal gland; J98.11 Atelectasis; I70.0 Atherosclerosis of aorta; I70.8 Atherosclerosis of other arteries
CPT/HCPCS: 74176

== ENCOUNTER → 2021-04-21 | Outpatient (CLI) | payer MEDICAID ==
[2021-02-10 14:03] VITALS: BP 179/95
[~2021-04-21] MED LIST changes: -CLIN150C15 PO; +CLIN150C16 PO; -LISI2.5T; +LISI2.5T12
--- NOTE | 2021-04-21 18:10 | KCIC ---
EXAM: XR LUMBAR SPINE 4+V 04/21/2021 10:37 AM CLINICAL INDICATION: Worsening chronic lower back pain and left leg pain COMPARISON: Lumbar spine radiograph 01/15/2019 TECHNIQUE: 5 views of the lumbar spine FINDINGS: There is partial lumbarization of S1. No acute fracture. Alignment is normal. There is sli ght rightward curvature of the lumbar spine. There is mild disc space narrowing at L4-L5 and L5-S1. M ild left facet arthrosis at L4-L5 and L5-S1. IMPRESSION: Mild degenerative disc disease at L4-L5 and L5-S1. Electronically signed by: Yocasta Jade MD (04/21/2021 6:08 PM) [id number]
== END ==
LOC: KCIC 10:33
PROVIDERS: ATTEND Family Medicine
DX: M47.817 Spondylosis without myelopathy or radiculopathy, lumbosacral region (principal); M51.36 Other intervertebral disc degeneration, lumbar region; M48.07 Spinal stenosis, lumbosacral region
CPT/HCPCS: 72110

== ENCOUNTER → 2021-05-12 | Outpatient (CLI) | payer MEDICAID, OTHER ==
[2021-02-10 14:03] VITALS: BP 179/95
[~2021-05-12] MED LIST changes: +CLIN-94 PO; -CLIN300C9 PO
--- NOTE | 2021-05-12 15:08 | RAD ---
INDICATION: Reason: SMKER, SOA / Spl. Instructions: / History: COMPARISON: February 2021 x-ray TECHNIQUE: Axial CT images obtained through the chest. No intravenous contrast One or more of the following individualized dose reduction techniques were utilized for this examinat ion: 1. Automated exposure control; 2. Adjustment of the mA and/or kV according to patient size; 3 . Use of iterative reconstruction technique. FINDINGS: No pneumothorax. Left adrenal nodule measuring approximately 43 x 31 mm. Appears low density therefore most likely sec ondary to adenoma. Partial visualization of a cystic lesion of the left kidney measuring at least 23 mm. There are some scattered calcific atherosclerosis including of the coronary arteries and thoracic aor ta. Small pericardial recess fluid. There is some degenerative changes of the spine. 3 mm subpleural nodule right upper lung. Degenerative changes the spine IMPRESSION: 3 mm right upper lung nodule. Left adrenal nodule. Appears low density therefore most likely from adenoma. Fleischner Society recommendations for solitary solid lung nodule follow up.: In a low risk patient: <6mm - No follow up required. 6-8mm - 6-[address], then CT at 18-24 months. >8mm - CT at 3 months, PET/CT or tissue sampling. In a high risk patient (history of smoking or other known risk factors): <6mm - Follow up CT at 12 months. 6-8mm - 6-[address], then CT at 18-24 months. >8mm - CT at 3 months, PET/CT or tissue sampling. Fleischner Society recommendations for multiple solid lung nodule follow up.: In a low risk patient: <6mm - No follow up required. 6-8mm - 3-[address], then CT at 18-24 months. >8mm - CT at 3-6 months, then at 18-24 months. PET/CT or tissue sampling based on most suspicious no dule. In a high risk patient (history of smoking or other known risk factors): <6mm - Follow up CT at 12 months. 6-8mm - 3-[address], then CT at 18-24 months. >8mm - CT at 3-6 months, PET/CT or tissue sampling option based on most suspicious nodule. Electronically signed by: Leander Arias MD (05/12/2021 3:06 PM) [id number]
== END ==
LOC: CT 11:00
PROVIDERS: ATTEND Internal Medicine Pulmonary Disease
DX: R91.1 Solitary pulmonary nodule (principal); E27.8 Other specified disorders of adrenal gland; I25.10 Atherosclerotic heart disease of native coronary artery without angina pectoris; I70.0 Atherosclerosis of aorta; N28.89 Other specified disorders of kidney and ureter; M47.819 Spondylosis without myelopathy or radiculopathy, site unspecified
CPT/HCPCS: 71250

== ENCOUNTER → 2021-07-20 | Outpatient (CLI) | payer MEDICAID ==
[2021-02-10 14:03] VITALS: BP 179/95
[~2021-07-20] MED LIST changes: -LISI1TAB23 PO; +LISI1TAB35 PO
--- NOTE | 2021-07-20 13:37 | KCIC ---
EXAM: 3 Views Right Shoulder DATE: 07/20/2021 11:31 AM INDICATION: Reason: Chronic Right shoulder pain. / Spl. Instructions: Pain w/internal rotation. / His tory: COMPARISON: No Prior FINDINGS: There is no evidence for acute fracture or dislocation. AC joint is congruent. Small right AC joint o steophytes. Humeral head is not high riding. IMPRESSION: 1. No acute fracture or dislocation. 2. Small right AC joint osteophytes. Electronically signed by: Toni Martínez MD (07/20/2021 1:35 PM) MICHELE
== END ==
LOC: KCIC 11:28
PROVIDERS: ATTEND Family Medicine
DX: M25.711 Osteophyte, right shoulder (principal); M75.21 Bicipital tendinitis, right shoulder
CPT/HCPCS: 73030

== ENCOUNTER → 2021-08-07 | Outpatient (CLI) | payer MEDICAID ==
[2021-02-10 14:03] VITALS: BP 179/95
--- NOTE | 2021-08-07 12:13 | RAD ---
EXAM: Abdomen sonogram. HISTORY: Epigastric pain. TECHNIQUE: Sonographic imaging of the abdomen was performed. COMPARISON: CT dated 05/12/2021. FINDINGS: The liver is normal in size. No focal hepatic lesion is seen. The gallbladder is unremarkab le. The common bile duct is normal in caliber. The right kidney, pancreas, aorta and if indicated are unremarkable. The spleen is normal in size. There is 2.7 cm simple cyst within the lower pole the le ft kidney. Follow-up is not routinely performed for simple cysts. IMPRESSION: 1. No acute sonographic finding. 2. 2.7 cm simple left renal cyst. Electronically signed by: Kristen Cast MD (08/07/2021 12:11 PM) [id number]
== END ==
LOC: US 11:19
PROVIDERS: ATTEND Family Medicine
DX: N28.1 Cyst of kidney, acquired (principal)
CPT/HCPCS: 76700